=== PATIENT | female | born 1960 | race Caucasian/White ===

== ENCOUNTER 2018-12-15 19:02 | Inpatient (IN) | payer MEDICAID, SELFPAY ==
[~2018-12-15] VITALS: Ht 167.6 cm; Wt 76.4 kg
[2018-12-15] MEDS ORDERED: LORazepam 2 MG/ML VIAL (J2060) IV STA (19:27)
[2018-12-15] MEDS ORDERED: LORazepam 2 MG/ML VIAL (J2060) As Ordered ONE (19:27)
[2018-12-15 19:48] LABS: BASO % 0.2 % (0.0-1.0); HEMATOCRIT 42.8 % (36.0-47.0); HEMOGLOBIN 14.1 g/dl (12.0-15.5); LYMPH # 0.7 10^3/uL (1.5-4.5); LYMPH % 3.5 % (24.0-44.0); MEAN CORPUSCULAR HEMOGLOBIN 28.7 pg (27.0-33.0); MEAN CORPUSCULAR HGB CONC 32.9 g/dl (32.0-36.5); MEAN CORPUSCULAR VOLUME 87.2 fl (80.0-96.0); MONO # 1.5 10^3/uL (0.0-0.8); MONO % 7.7 % (0.0-5.0); NEUTROPHILS # 17.6 10^3/uL (1.8-7.7); NEUTROPHILS % 87.9 % (36.0-66.0); RED BLOOD COUNT 4.91 10^6/uL (4.00-5.40); WHITE BLOOD COUNT 20.1 10^3/uL (4.0-10.0)
--- NOTE | 2018-12-15 19:57 | REP ---
Clinical: Altered mental status . Comparison: None . Findings: The ventricles, sulci, and cisterns are normal in position and appearance. Smith-white differentiation is maintained. No acute intracranial hemorrhage, mass/mass effect, pathology or trauma/injury. No evidence for acute infarction. No extra-axial fluid collection. Calvarium is intact. Paranasal sinuses and mastoid air cells are clear. Impression: Normal noncontrast head CT. No evidence for acute intracranial pathology or trauma/injury. Electronically Signed by Marino Saucedo MD 12/15/2018 07:50 P
[2018-12-15 19:59] LABS: INR 1.35; PROTHROMBIN TIME 16.9 SECONDS (12.1-14.4)
[2018-12-15 20:00] LABS: PARTIAL THROMBOPLASTIN TIME 27.4 SECONDS (25.4-37.6)
[2018-12-15] MEDS ORDERED: DILUENT IV ONE (20:00)
[2018-12-15] MEDS ORDERED: NS IV ONE (20:00)
[2018-12-15 20:13] LABS: AMPHETAMINES LEVEL URINE NEGATIVE (NEGATIVE); BARBITURATES URINE NEGATIVE (NEGATIVE); BENZODIAZEPINES URINE NEGATIVE (NEGATIVE); CANNABINOIDS URINE NEGATIVE (NEGATIVE); COCAINE METABOLITE URINE NEGATIVE (NEGATIVE); METHADONE URINE NEGATIVE (NEGATIVE); OPIATES URINE NEGATIVE (NEGATIVE); PHENCYCLIDINE URINE NEGATIVE (NEGATIVE)
[2018-12-15] MEDS: SUCCINYLCHOLINE INJ 200 MG/10 ML VIAL (J0330) IV ONE ×2 (20:15→20:48)
[2018-12-15] MEDS ORDERED: ETOMIDATE INJ 20MG/10ML VIAL IV ONE (20:15)
[2018-12-15] MEDS ORDERED: PROPOFOL 1,000 MG in APPROPRIATE DILUENT 1 EA IV SCH (20:15)
[2018-12-15 20:20] LABS: ABG BASE EXCESS -5.5 (-2.0-2.0); ABG HCO3 18.1 MEQ/L (22.0-26.0); ABG O2 SATURATION 96.6 % (95.0-99.0); ABG PARTIAL PRESSURE CO2 30.3 mmHg (35.0-45.0); ABG PARTIAL PRESSURE O2 85.7 mmHg (75.0-100.0); ABG pH (ARTERIAL) 7.394 UNITS (7.350-7.450)
[2018-12-15 20:20] LABS: ACETAMINOPHEN LEVEL < 2.0 UG/ML (10.0-30.0); ALBUMIN 3.7 GM/DL (3.2-5.2); ALT/SGPT 27 U/L (12-78); BILIRUBIN,DIRECT 0.8 MG/DL (0.0-0.2); BILIRUBIN,TOTAL 1.8 MG/DL (0.2-1.0); C REACTIVE PROTEIN QUANTITATIV 2.91 MG/DL (0.00-0.30); CK-MB VALUE MASS < 1.0 NG/ML (<3.6); CPK CREATINE PHOSPHOKINASE 70 U/L (26-192); ETHYL ALCOHOL (ETHANOL) < 0.003 % (0.000-0.010); MB/CK RELATIVE INDEX 1.43 (< OR =4); SALICYLATE LEVEL 2.7 MG/DL (5.0-30.0); TOTAL PROTEIN 9.2 GM/DL (6.4-8.2); TROPONIN I < 0.02 NG/ML (< 0.10)
[2018-12-15 20:25] LABS: PLATELET COUNT, AUTOMATED 99 10^3/uL (150-450)
--- NOTE | 2018-12-15 20:44 | REP ---
Clinical: Altered mental status . Comparison: None . Findings: The mediastinum and cardiac silhouette are stable and within normal limits for portable technique. The lung bragg demonstrate chronic-appearing changes without acute consolidation, effusion, or pneumothorax. Skeletal structures are intact. Impression: No obvious acute cardiopulmonary process appreciated. Electronically Signed by Marino Saucedo MD 12/15/2018 08:36 P
[2018-12-15] MEDS ORDERED: ROCURONIUM BROMIDE 50 MG/5 ML VIAL IV ONE (21:00)
[2018-12-15 21:15] LABS: BLOOD UREA NITROGEN 11 MG/DL (7-18); CALCIUM LEVEL 9.3 MG/DL (8.5-10.1); CARBON DIOXIDE LEVEL 20 MEQ/L (21-32); CHLORIDE LEVEL 102 MEQ/L (98-107); CREATININE FOR GFR 1.01 MG/DL (0.55-1.30); GLOMERULAR FILTRATION RATE > 60.0 (>51); GLUCOSE, FASTING 312 MG/DL (70-100); POTASSIUM SERUM 3.5 MEQ/L (3.5-5.1); SODIUM LEVEL 136 MEQ/L (136-145)
--- NOTE | 2018-12-15 21:17 | REP ---
Clinical: Status post intubation . Comparison: 12/15/2018 . Findings: Endotracheal tube 2.7 cm above the maki. The mediastinum and cardiac silhouette are stable and within normal limits for portable technique. The lung bragg are clear without acute consolidation, effusion, or pneumothorax. Skeletal structures are intact. Impression: Endotracheal tube in satisfactory position. No focal consolidation. Electronically Signed by Marino Saucedo MD 12/15/2018 09:08 P
[2018-12-15] MEDS ORDERED: AMPICILLIN SOD/SULBACTAM SOD 3 GM in D5W MINI-BAG PLUS 100 ML IV ONE (21:30)
[2018-12-15] MEDS ORDERED: VANCOMYCIN HCL 1,000 MG, VIAL MATE ADAPTER 1 EACH in D5W 250 ML IV ONE (21:30)
[2018-12-15] MEDS ORDERED: dexameTHASONE 20 MG/5 ML VIAL (J1100) IV ONE (21:30)
[2018-12-15] MEDS ORDERED: cefTRIAXone SOD 1 GM in D5W MINI-BAG PLUS 50 ML IV ONE (21:30)
[2018-12-15] MEDS ORDERED: LABETALOL HCL 100 MG/20 ML VIAL IV STA (21:40)
[2018-12-15 21:41] LABS: APPEARANCE, CSF TURBID (CLEAR); CSF TUBE# CELL CNT TUBE 1; CSF TUBE# CELL CNT TUBE 4
[2018-12-15 21:51] LABS: CSF TUBE# GLU TUBE 3; CSF TUBE# TP TUBE 3; GLUCOSE CSF 58 MG/DL (40-75)
[2018-12-15] MEDS ORDERED: IBUPOTC PO (22:05)
[2018-12-15] MEDS ORDERED: EXCETAB81 PO (22:05)
[2018-12-15] MEDS ORDERED: ADVI1CAP2 PO (22:05)
[2018-12-15] MEDS ORDERED: D5W/0.9% SODIUM CHLORIDE 1,000 ML IV SCH (22:30)
[2018-12-15] MEDS ORDERED: IPRATROPIUM 0.5MG/ALBUTEROL 2.5MG INH SOL UD 3ML (DUONEB)(J7620) NEB ONE (22:45)
[2018-12-15 22:55] LABS: TOTAL PROTEIN,CSF 451 MG/DL (15-45)
[2018-12-15 23:06] VITALS: BP 144/72
--- NOTE | 2018-12-15 23:14 | PHACANCOPD ---
PHARMACY VANCOMYCIN DOSING Pt Demographics Demographics Patient Age:58 , Weight:73.000 , Gender: female Adjusted Body Weight Date: 12/15/18, Adjusted Body Weight: Kg Events Past 24 Hours Events Past 24 Hours: NO: Dialysis, Diuretic Therapy, Change in CrCl, Fever, Elevation in WBC, Pending Diagnostics, Pending Procedures, Other Vancomycin Vancomycin Target Ranges: 15-20 mcg/ml Vancomycin Load Y/N: Yes Load Dose Date Time Vancomycin Load Dose: 2000mg Date: 12-16 Time: 0000 Vancomycin Dose Date: 12/15/18. Current Vancomycin Dose: [1000mg q8h] Intermittent Dosing?: No Labs Labs Item Value Date Time White Blood Count 20.1 10^3/uL H 12/15/18 1928 Glomerular Filtration Rate > 60.0 12/15/188 Creatinine 1.01 MG/DL 12/15/18 1928 Blood Urea Nitrogen 11 MG/DL 12/15/18 1928 Vital Signs Label Value Date Time Patient Temperature 101.8 degrees F 12/15/18 2245 Temperature Source Rectal 12/15/18 2245 Micro Microbiology 12/15/18 Blood Culture, Received Pending 12/15/18 , Received Pending 12/15/18 Gram Stain, Received Pending 12/15/18 CSF Culture, Received Pending 12/15/18 Respiratory Virus Panel (PCR) (FERMIN) - Final, Complete Creatinine Clearance Date:12/15/18. Creatinine Clearance: [~60]. Pending Labs Trough 12-16 @1500 Assessment and Plan Maintaining Current Dose?: Yes Reason for dose change: No Dose Change Pharmacist Note Pharmacist Note Date: 12/15/18. Pharmacist note:Will monitor and make adjustments as needed. ISHA OLIVERA PHARMACY Dec 15, 2018 23:14
[2018-12-15] MEDS: KCL 20MEQ IN D5/0.45NS 1000ML 1,000 ML IV SCH (23:29)
[2018-12-16] VITALS (24 sets, daily range): BP systolic 137–180; BP diastolic 61–84
[2018-12-16] MEDS: PROPOFOL 1,000 MG in APPROPRIATE DILUENT 1 EA IV SCH ×6 (00:41→22:37)
[2018-12-16] MEDS: VANCOMYCIN HCL 1,000 MG, VIAL MATE ADAPTER 1 EACH in D5W 250 ML IV SCH ×2 (00:42→08:06)
[2018-12-16] MEDS: ACETAMINOPHEN 325 MG/10.15 ML UDC GT PRN ×5 (01:12→20:27)
[2018-12-16] MEDS: IPRATROPIUM 0.5MG/ALBUTEROL 2.5MG INH SOL UD 3ML (DUONEB)(J7620) NEB SCH ×7 (03:05→23:17)
[2018-12-16] MEDS: dexameTHASONE 20 MG/5 ML VIAL (J1100) IV SCH ×4 (03:43→22:07)
[2018-12-16] MEDS ORDERED: AMPICILLIN SOD 500 MG in D5W 50 ML IV SCH (04:00)
[2018-12-16 05:29] LABS: BASO % 0.2 % (0.0-1.0); HEMATOCRIT 38.5 % (36.0-47.0); HEMOGLOBIN 12.7 g/dl (12.0-15.5); LYMPH # 0.3 10^3/uL (1.5-4.5); LYMPH % 1.8 % (24.0-44.0); MEAN CORPUSCULAR HEMOGLOBIN 28.9 pg (27.0-33.0); MEAN CORPUSCULAR VOLUME 87.5 fl (80.0-96.0); MONO % 5.8 % (0.0-5.0); NEUTROPHILS # 16.1 10^3/uL (1.8-7.7); NEUTROPHILS % 90.8 % (36.0-66.0); PLATELET COUNT, AUTOMATED 66 10^3/uL (150-450); WHITE BLOOD COUNT 17.7 10^3/uL (4.0-10.0)
[2018-12-16] MEDS: HEPARIN SOD (PORCINE) 5000 UNITS/ML VIAL SC SCH ×3 (05:33→22:00)
[2018-12-16 05:54] LABS: ALT/SGPT 25 U/L (12-78); BILIRUBIN,TOTAL 1.5 MG/DL (0.2-1.0); BLOOD UREA NITROGEN 10 MG/DL (7-18); CALCIUM LEVEL 7.9 MG/DL (8.5-10.1); CARBON DIOXIDE LEVEL 20 MEQ/L (21-32); CHLORIDE LEVEL 103 MEQ/L (98-107); CHOLESTEROL LEVEL 122 MG/DL (< 200); CPK CREATINE PHOSPHOKINASE 170 U/L (26-192); CREATININE FOR GFR 0.82 MG/DL (0.55-1.30); GLOMERULAR FILTRATION RATE > 60.0 (>51); GLUCOSE, FASTING 414 MG/DL (70-100); LDH LACTATE DEHYDROGENASE 234 U/L (84-246); PHOSPHORUS LEVEL 1.9 MG/DL (2.5-4.9); POTASSIUM SERUM 3.5 MEQ/L (3.5-5.1); SODIUM LEVEL 135 MEQ/L (136-145); TOTAL PROTEIN 8.5 GM/DL (6.4-8.2); TRIGLYCERIDES LEVEL 138 MG/DL (<150)
[2018-12-16 05:58] LABS: ABG BASE EXCESS -3.6 (-2.0-2.0); ABG O2 SATURATION 99.3 % (95.0-99.0); ABG PARTIAL PRESSURE CO2 32.1 mmHg (35.0-45.0); ABG STANDARD HCO3 21.5 MEQ/L (22.0-26.0); ABG pH (ARTERIAL) 7.412 UNITS (7.350-7.450)
[2018-12-16] MEDS ORDERED: GLUCOSE 4 GM CHEW TABLET PO PRN (06:45)
[2018-12-16] MEDS ORDERED: DEXTROSE 50% 50 ML SYRINGE IV PRN (06:45)
[2018-12-16] MEDS ORDERED: GLUCAGON FOR INJ 1 MG VIAL (J1610) SC PRN (06:45)
[2018-12-16] MEDS: KCL 20MEQ IN D5/0.45NS 1000ML 1,000 ML IV SCH ×4 (06:56→20:11)
[2018-12-16] MEDS: HumaLOG INSULIN (NovoLOG) PER UNIT SC SCH ×2 (07:51→12:45)
--- NOTE | 2018-12-16 07:57 | HPE ---
DATE OF ADMISSION: 12/15/2018 START TIME: 2199 STOP TIME: 2241 I was called to the ER to attend Patty Gibson. She is accompanied by family. Reportedly was fine up until yesterday, complained of some headaches and stiff neck. This morning much worse she had a fever and altered mental status. She was combative in the ER to the point where she had to be intubated. She had T-Max 101.7, heart rate in the 140's, blood pressure initially in the 250's, improved with propofol. She had an LP which showed 8,997 white cells mainly polymorphonuclear leukocytes. Glucose at 58, protein is pending. CT scan of the head was unremarkable. Chest x-ray done post-intubation shows the endotracheal tube being in satisfactory position no infiltrates, no pneumos. The family reports that no one else at home is sick. No recent travel. She does smoke. She only has one cat which apparently is healthy. Her allergies listed as none. CURRENT MEDICATIONS: Only Advil P.M.. PAST MEDICAL HISTORY: Significant for a previous history of alcohol use but dry for 2 years. Continued ongoing tobacco abuse. SOCIAL HISTORY: Lives at home and has 8 children and an indoor cut. Tobacco at least a pack a day. FAMILY HISTORY: Noncontributory. REVIEW OF SYSTEMS: As per the HPI. Constitution: Significant for fevers. HEENT: Significant for headaches. Pulmonary as per the HPI with smoking. Cardiac: Unremarkable for angina. GI: Unremarkable for any recent nausea, vomiting, or diarrhea. : Unremarkable for dysuria or urgency. Neurologic: Significant for her mental status changes. Endocrine: Unremarkable for diabetes or thyroid disease. Hematologic: Unremarkable for bleeding dyscrasia. Dermatologic: Unremarkable Musculoskeletal: Significant for diffuse muscles aches and pains. Psychiatric: Unremarkable. PHYSICAL EXAM: Currently this is an intubated female here in the ER. She is on a propofol drip. Blood pressure 143/65, heart rate 112/118 with a sinus mechanism. Respiratory rate 16-18 and she does over breathe the vent. She currently has a fever of 101. HEENT: Shows the oral endotracheal tube. Pupils are about 5 mm and do react although they are sluggish. She does have corneals and a gag. Membranes are moist. Trachea is midline. CHEST: Clear to auscultation. Expansion is symmetric. No focal adventitious breath sounds are identified. Cardiac exam regular with no gallop. Peripheral pulses are easily palpable. There is no edema. Abdomen obese, soft and active bowel sounds. No convincing organomegaly or masses. Extremities: No cyanosis or clubbing. Neurologically, she is sedate. Psychiatric exam shows her to be sedated. Other laboratory show a white blood cell count of 20.1, hemoglobin 14.1, platelet count 99,000, 87.9% segmented neutrophils no bands, sodium 136, potassium 3.5, chloride 102, CO2 20, BUN 11, creatinine 1.01, glucose 312, first lactic acid 7.6, bilirubin 1.8, alkaline phos 189, ammonia mildly elevated at 42. Blood gas done after intubation shows pH 7.394, Pco2 30.3, Po2 85, on unknown vent setting. Coags unremarkable. Tox screen unremarkable. Urine is negative. IMPRESSION: 1. Bacterial meningitis. 2. History of tobacco abuse. RECOMMENDATIONS: At this point she will be treated with triple antibiotics and normal ampicillin, Rocephin and vancomycin as well as Decadron 10 mg IV every 6 [address] I spoke with Dr. Garrido from infectious disease as she was in agreement with this regimen and I have asked her to see her in the morning. She will receive IV hydration. She is making reasonable urine. Hemodynamically at this point is acceptable. We will give her sedation as needed and pain medications for her headache. I spoke with the family at length regarding her critical illness. Prognosis at this point is guarded at best. I left the bedside at 2242 hours, 42 minutes of critical care time at the bedside not including procedures.
[2018-12-16] MEDS ORDERED: cefTRIAXone SOD 2 GM in D5W MINI-BAG PLUS 50 ML IV SCH (09:00)
--- NOTE | 2018-12-16 09:04 | REP ---
Portable chest x-ray: Single view. History: Respiratory failure. Comparison chest x-ray: December 15, 2018. Findings: A nasogastric tube has been inserted and terminates in the left upper quadrant of the abdomen. Endotracheal tube remains in good position at the level of the transverse aorta. There is discoid atelectasis in the left base laterally and posteriorly behind the heart. The right lung is clear. Heart is not enlarged. Electronically Signed by Marcus Leigh MD 12/16/2018 08:56 A
[2018-12-16] MEDS: CHLORHEXIDINE GLUCONATE 0.12 % 15ML UDC (PERIDEX ORAL RINSE) MT SCH ×2 (09:17→20:27)
[2018-12-16] MEDS: PANTOPRAZOLE 40MG INJ (PROTONIX) (C9113) IV SCH (09:17)
[2018-12-16] MEDS: cefTRIAXone SOD 2 GM in D5W MINI-BAG PLUS 50 ML IV SCH ×2 (09:17→22:07)
--- NOTE | 2018-12-16 09:38 | CCN ---
DATE OF VISIT: 12/16/2018 START TIME: 0812 hours STOP TIME: 0845 hours I again attended Patty Gibson. Patient has been examined and the chart reviewed. I spoken at length with one of her daughters at the bedside. The cerebrospinal fluid (CSF) multiplex has shown Strep pneumoniae. Maximum temperature (Tmax) overnight 102.4, heart rate generally in the 90s to low 100s with a sinus mechanism. Blood pressure 138-150s systolic. She is making reasonable urine. Intake and output 1320 in and 1325 out. Arterial blood gas done on PRVC of 16, tidal volume 450, PEEP of 5, FiO2 40% has a pH 7.412, pCO2 of 32, pO2 of 154.0, saturation 99.3%. Sodium 135, potassium 3.5, chloride 103, CO2 20, BUN 10, creatinine 0.82, glucose 414. Lactic acid down to 2.8 last evening. Phosphorus mildly low at 1.9. Bilirubin improved from 1.8 to 1.5 this morning. Alkaline phosphatase improved as well at 141. White blood cell count 17.7, hemoglobin 12.7, and platelet count down to 66,000. 90.8% segmented neutrophils, no bands. Chest x-ray done this morning shows endotracheal tube and orogastric tubes in good position. There is some plate-like atelectasis at the left base. I cannot rule out a minimal infiltrate on the right. On exam, she is sedate, moves all extremities. Pupils are about 4-5 mm and react. Sclerae are clear. Trachea is the midline. Chest is essentially clear to auscultation and percussion. Expansion is symmetric. No focal adventitious breath sounds are identified. Tactile fremitus palpable throughout. Cardiac exam is regular with no murmur or gallop. Peripheral pulses palpable. No edema. Abdomen obese, soft with active bowel sounds. No convincing organomegaly or masses. Extremities show no cyanosis or clubbing. Neurologically, she is heavily sedated. She does have upgoing toes today, however. The most pressing problems requiring my presence at the bedside: 1. Strep pneumoniae/pneumococcal meningitis. 2. Respiratory failure secondary to the above. 3. Ongoing tobacco use. At this point, we will continue her current antimicrobials and Decadron until seen by infectious diseases. Given the fact it is pneumococcus and not meningococcus, we can likely discontinue her isolation. She is on ulcerative and deep venous thrombosis (DVT) prophylaxis, but we will need to monitor her platelet count as it is down from yesterday. We will begin enteral feeds. Hopefully in the next 24 hours we can begin weaning from the ventilator as well. Her prognosis in view of the severity of her presentation remains guarded however, and I did communicate that with her daughter at the bedside. I left the bedside at 0845 hours. 33 minutes of critical care time at the bedside not including procedures.
--- NOTE | 2018-12-16 10:23 | ECGEPIP ---
Stationary ECG Study [facility] - ED Test Date: 2018-12-15 Pat Name: DANICA CESAR Department: Room: [place] [address] Gender: F [employer] [address] Justice: [place] : 1960 Requested By: JOAQUIN Berg Order Number: [id number] Reading MD: Leyla Casper Measurements Intervals [place] Rate: 126 P: 85 KS: 147 QRS: 76 QRSD: 104 T: 68 QT: 351 QTc: 510 Interpretive Statements SINUS TACHYCARDIA NONSPECIFIC ST & T-WAVE ABNORMALITY ABNORMAL RHYTHM ECG NO PRIOR FOR COMPARISON Electronically Signed On 12-16-2018 10:22:51 EDT by Leyla Casper
[2018-12-16] MEDS: INSULIN HUMAN REGULAR 100 UNITS in NS 99 ML IV SCH ×2 (14:07→22:36)
[2018-12-16] MEDS: INSULIN IV RATE CHANGE DOCUMENTATION ML/HR XX SCH ×6 (15:12→22:59)
[2018-12-16] MEDS ORDERED: diphenhydrAMINE 25 MG CAP PO ONE (15:45)
[2018-12-16] MEDS ORDERED: VANCOMYCIN HCL 1,000 MG, VIAL MATE ADAPTER 1 EACH in D5W 250 ML IV SCH (16:00)
[2018-12-16] MEDS ORDERED: IBUPROFEN 100 MG/5 ML SUSP UDC DYE FREE PO PRN (16:30)
[2018-12-16] MEDS ORDERED: VANCOMYCIN HCL 500 MG in D5W MINI-BAG PLUS 100 ML IV ONE (17:00)
[2018-12-16] MEDS: VANCOMYCIN HCL 1,000 MG, VIAL MATE ADAPTER 1 EACH in NS 250 ML IV SCH (20:26)
[2018-12-17] VITALS (25 sets, daily range): BP systolic 120–190; BP diastolic 58–88
[2018-12-17] MEDS: ACETAMINOPHEN 325 MG/10.15 ML UDC GT PRN ×4 (00:23→20:38)
[2018-12-17] MEDS: MORPHINE 4 MG/ML 1ML VIAL/SYRINGE (J2270) IV PRN ×2 (00:24→15:18)
[2018-12-17] MEDS: INSULIN IV RATE CHANGE DOCUMENTATION ML/HR XX SCH ×13 (00:27→22:16)
[2018-12-17] MEDS: KCL 20MEQ IN D5/0.45NS 1000ML 1,000 ML IV SCH (02:16)
[2018-12-17] MEDS: PROPOFOL 1,000 MG in APPROPRIATE DILUENT 1 EA IV SCH ×3 (02:17→15:59)
[2018-12-17] MEDS: IPRATROPIUM 0.5MG/ALBUTEROL 2.5MG INH SOL UD 3ML (DUONEB)(J7620) NEB SCH ×6 (03:17→23:28)
[2018-12-17] MEDS: dexameTHASONE 20 MG/5 ML VIAL (J1100) IV SCH ×4 (03:48→22:13)
[2018-12-17] MEDS: VANCOMYCIN HCL 1,000 MG, VIAL MATE ADAPTER 1 EACH in NS 250 ML IV SCH ×3 (03:48→20:19)
[2018-12-17] MEDS: INSULIN HUMAN REGULAR 100 UNITS in NS 99 ML IV SCH ×3 (04:12→17:23)
[2018-12-17 05:00] LABS: BASO % 0.2 % (0.0-1.0); HEMATOCRIT 37.8 % (36.0-47.0); HEMOGLOBIN 12.4 g/dl (12.0-15.5); LYMPH # 0.3 10^3/uL (1.5-4.5); LYMPH % 2.2 % (24.0-44.0); MEAN CORPUSCULAR HEMOGLOBIN 28.8 pg (27.0-33.0); MEAN CORPUSCULAR HGB CONC 32.8 g/dl (32.0-36.5); MEAN CORPUSCULAR VOLUME 87.7 fl (80.0-96.0); MONO % 8.4 % (0.0-5.0); NEUTROPHILS # 10.9 10^3/uL (1.8-7.7); NEUTROPHILS % 87.9 % (36.0-66.0); RED BLOOD COUNT 4.31 10^6/uL (4.00-5.40); WHITE BLOOD COUNT 12.4 10^3/uL (4.0-10.0)
[2018-12-17 05:08] LABS: PLATELET COUNT, AUTOMATED 70 10^3/uL (150-450)
[2018-12-17 05:15] LABS: HEMOGLOBIN A1c 11.7 %
[2018-12-17] MEDS: HEPARIN SOD (PORCINE) 5000 UNITS/ML VIAL SC SCH (06:00)
[2018-12-17 07:37] LABS: ALBUMIN 2.7 GM/DL (3.2-5.2); ALT/SGPT 23 U/L (12-78); BILIRUBIN,TOTAL 1.1 MG/DL (0.2-1.0); BLOOD UREA NITROGEN 14 MG/DL (7-18); CALCIUM LEVEL 7.8 MG/DL (8.5-10.1); CARBON DIOXIDE LEVEL 23 MEQ/L (21-32); CHLORIDE LEVEL 103 MEQ/L (98-107); CHOLESTEROL LEVEL 108 MG/DL (< 200); CPK CREATINE PHOSPHOKINASE 141 U/L (26-192); CREATININE FOR GFR 0.76 MG/DL (0.55-1.30); GLOMERULAR FILTRATION RATE > 60.0 (>51); GLUCOSE, FASTING 250 MG/DL (70-100); IMMUNOGLOBULIN G 1880 MG/DL (681-1648); LDH LACTATE DEHYDROGENASE 273 U/L (84-246); POTASSIUM SERUM 3.6 MEQ/L (3.5-5.1); SODIUM LEVEL 134 MEQ/L (136-145); TOTAL PROTEIN 7.7 GM/DL (6.4-8.2); TRIGLYCERIDES LEVEL 116 MG/DL (<150)
[2018-12-17 07:39] LABS: PHOSPHORUS LEVEL 1.1 MG/DL (2.5-4.9)
--- NOTE | 2018-12-17 07:50 | CR ---
DATE OF CONSULTATION: 12/16/2018 REASON FOR CONSULTATION: Bacterial meningitis. HISTORY OF PRESENT ILLNESS: This is a 58-year-old female with no pertinent past medical history who was admitted on 12/15/2018 evening for altered mental status. She was brought in by her family members who state that until the day of admission, the patient has been relatively well. In the morning of 12/15/2018, she was complaining of some headache and stiff neck. The daughter, who is at bedside today states that the mom usually does not complain of anything and does avoid going to the doctor's office. It has been many years since the patient has been evaluated by a medical provider. They state that they brought her in because the patient was having altered mental status and was having high fevers. When she was in the emergency room, she was combative to a point where she needed to be intubated. She had a maximum temperature (T-max) of 101.7 and a heart rate at 140 with a blood pressure systolic in the 200s. Once she was sedated with propofol, her blood pressure did improve. A lumbar puncture in the emergency room did show that she had a WBC of 8997, which were mainly polymorphic nuclei. Glucose of 58 and protein of 451. Drug toxicology was negative. Chest x-ray after intubation showed no infiltrate and that the tube was placed in satisfactory position with no pneumothorax. Daughter states that no one else at home was sick. She had no recent travel. No recent head trauma. PAST MEDICAL HISTORY: Past history of alcohol use but sober for 2 years. Current tobacco abuse. PAST SURGICAL HISTORY: One section. CURRENT MEDICATIONS: Advil PM as needed. SOCIAL HISTORY: Lives at home with a cat by herself but does have eight children. Does smoke at least 1/2 of tobacco a day. Used to have alcohol use in the past but has been sober for 2 years. No history of IV drug abuse. She has one tattoo on her left lateral shoulder, which she has had for many years. FAMILY HISTORY: Noncontributory. REVIEW OF SYSTEMS: Unable to obtain for the patient is currently intubated but it is positive, according to the daughter for headaches and fevers only. PHYSICAL EXAMINATION: VITALS: Temperature 102.6, pulse 100, respiration 28, blood pressure 160/77, map 144, pulse ox of 97% on ventilator of 40 FiO2. HEENT: Oral endotracheal tube in place. She has a cough reflex. Membrane is moist. Trachea is midline. Nares: On the left lateral nasal bridge, there is an old indentation from a previous surgical removal. Site appears deep but well healed with no opening. No erythema. No discharge noted. It is measuring about 3 x 4 cm, irregular in size. No eschar or scabbing noted. LUNGS: Adventitious lung sound, possible upper respiratory because the patient has a wet cough. Lower lobes due sound clear to auscultate and lungs appear to expand symmetrically. CARDIAC: Slightly tachycardic but regular rate and rhythm. No audible murmurs noted. ABDOMEN: Soft, nontender, positive bowel sounds in all four quadrants. No splenomegaly or hepatomegaly noted. No surgical scar noted as well. EXTREMITIES: No lower extremity edema. No open wounds noted. No swelling. INTEGUMENTARY: Small pinkish hives appreciated around the periumbilical, largest measuring about 2 x 3 cm round and the second one measuring on the right lateral quadrant measuring about 1 x 2 cm round. No other lesions are noted anywhere. Slightly raised pink papule with no vesicles noted. LABORATORY: Hematology: WBC 15.7, hemoglobin 12.7, hematocrit 38.5, platelets 66. Chemistries: Sodium 135, potassium 3.5, chloride 103, carbon dioxide 20, anion gap 12, BUN 10, creatinine 0.82, GFR 60.0, fasting glucose 414, calcium 7.9, phosphorus 1.9, total bilirubin 1.5, AST 35, ALT 25, alkaline phosphatase 141, lactate dehydrogenase 234, ammonia 42, total creatinine 170. Blood gas: ABG 7.412, pCO2 32.1, pO2 154.0. Toxicology urine drug screen negative for drugs. Lumbar puncture: WBC highest 897, glucose 54, polynucleated WBC 78.9, mononuclear percentage 21.1, total protein 451. Microbiology: CSF fluids final positive for Streptococcal pneumoniae. Blood cultures times 1 pending. Respiratory syncytial virus (RSV) penal negative. IMAGING: Head CT: Normal noncontrast head CT. No evidence of acute intracranial pathology or trauma. Chest x-ray: No obvious acute cardiopulmonary process appreciated. Endotracheal (ET) tube placed appropriately. ASSESSMENT/PLAN: This is a 58-year-old female with no pertinent past medical history except tobacco abuse who presented into the emergency department on 12/15/2018 for altered mental status and fevers. Her cerebrospinal fluid (CSF) cultures were positive for Streptococcal pneumoniae. She has been started on antibiotic treatment and is currently intubated. She will be managed for the following problems. 1. Bacterial meningitis: CSF fluids are consistent with a bacterial meningitis with cultures positive for Streptococcal pneumoniae. According to the daughter, the patient does not have any medical care and tries to avoid going to the doctor, so it is highly unlikely that she has gotten her pneumonia vaccine or flu vaccine. The daughter denies patient having any recent trauma. Recommend treatment for Strep pneumoniae is ceftriaxone 2 grams IV every 12 hours and vancomycin 1000 mg IV every 8 hours. Once culture sensitivities have returned, we can de-escalate antibiotics. Recommendation duration of treatment for 14 days. Unsure if the patient has underlying immunocompromised state, so we will get immunoglobulin G, A and M levels. She was born between 1944 and 1963, she we will get a hepatitis C screen as well as HIV. Possibly, I do believe because of her avoidance of going to a primary care, her immunocompromise state can be from noncompliant diabetes. We will get an A1c. She is currently on an insulin drip. She is currently on dexamethasone 10 mg every 6 for at least 2-5 days to help with cerebral inflammation secondary to the meningitis.We will continue with intensive care unit's (ICU) recommendations for sugar management. 2. Abdominal hives: On the abdomen, there does appear to be erythematous lesion, appears like hives. Will give her a one-time dose of Benadryl 25 mg by mouth and will continue to monitor. It could be secondary to her fevers that she is having. She does have a maximum temperature (T-max) of 103.1. I do not know if it is secondary to a drug reaction. Will continue to follow. 3. Fevers: possibly secondary to the meningitis. Her renal function is appropriate at 10 and 0.82. We will have Ibuprofen 600 mg by mouth every 6 hours as needed for fevers. Thank you for this consultation. We will continue to follow the patient while she is admitted. My faculty preceptor for this patient encounter was physically present during the encounter and was fully available. All aspects of the patient interview, examination, medical decision making process, and medical care plan development were reviewed and approved by the faculty preceptor. The faculty preceptor is aware and concurs with the plan as stated in the body of this note and will attest to such by his/her co-signature. SUSSY
--- NOTE | 2018-12-17 08:12 | REP ---
Portable chest x-ray: Single view. History: Respiratory failure. Comparison study: December 16, 2018. Findings: EKG electrodes are seen. An NG tube enters left upper quadrant. Endotracheal tube is seen in good position at the level of the aortic knob. There are increased markings in the left base laterally and behind the heart unchanged. No new infiltrate is seen. Heart size is normal. Electronically Signed by Marcus Leigh MD 12/17/2018 08:03 A
--- NOTE | 2018-12-17 09:34 | CCN ---
DATE OF SERVICE: 12/17/2018 Critical care time was 1 hour. This excludes all procedures. Ms. Gibson is a 58-year-old female, who has been diagnosed with streptococcal meningitis with sepsis and no evidence of septic shock currently. Antibiotic regimen was adjusted yesterday. She remains on Decadron with a goal of 3-5 days. Had occasional vagaling overnight with movement. Diprivan has been decreased. Patient was placed on insulin drip yesterday with better glucose control. Urine output has been good. Therefore, I have discontinued her intravenous (IV) fluids that had D5 and will continue to monitor fingersticks with a goal blood sugar less than 180. This morning she continues to spike fevers. Maximum temperature (Tmax) is 102.6. I believe this is due to the severity of the streptococcal meningitis. A sedation vacation is scheduled for this morning. She was responding to pain yesterday. This morning is slightly more sedated and therefore will reevaluate neurologic status on sedation vacation. PHYSICAL EXAMINATION: Temperature is 102.6, pulse is 86, respiratory rate is 16, blood pressure is 159/74, oxygen saturation 97% on 0.40. Patient on arrival to the room is actually overbreathing the ventilator with a respiratory rate of 22. Current ventilatory settings PRVC of tidal volume of 450, respiratory rate of 16, PEEP of 4, with a pAO2 of 0.40. On the ventilatory setting, arterial blood gas shows a pH of 7.41, pCO2 of 32, pAO2 of 154. GENERAL: Patient is sedated on mechanical ventilation. Currently no purposeful movements but did previously according to the nursing staff. She is overbreathing the vent. HEENT: Sclerae are clear and anicteric. Pupils are approximately 4 mm and reactive to light. They are symmetric. Mucous membranes are moist. Tongue is midline without lesions. Tongue appears moist. Endotracheal tube, orogastric (OG) tube is in place. Neck is supple. No tracheal deviation or mass. LYMPH: No cervical, supraclavicular or axillary adenopathy. CARDIAC: Regular, S1, S2. Without audible murmur, rub or gallop. No elevated jugular venous pulse (JVP). No peripheral edema. Thromboembolism deterrents (TEDs) and Tomasz's are in place. PULMONARY: Clear to auscultation without rales, rhonchi or wheezes. No dullness to percussion. No accessory muscle use. ABDOMEN: Slightly potty, but normal to hyperactive bowel sounds. No discernible hepatosplenomegaly. No masses or hernia. The abdomen is compressible. EXTREMITIES: No cyanosis, clubbing or edema. SKIN: A few confluent, mildly erythematous rashes over the abdomen and legs that come and go. There is no evidence of an open wound. There is no jaundice and no bruising. NEUROLOGIC EVALUATION: Limited due to sedation. Will have to re-approach the patient on sedation vacation and repeat neurologic exam. However, the patient is overbreathing the vent and has reactive pupils, but currently is not following commands or responding to painful stimuli. LABORATORY EVALUATION: Sodium is 134, potassium 3.6, chloride is 103, bicarbonate of 23, BUN of 14, creatinine 0.76 , with a glucose of 250. That was this morning's a.m. labs. Most recent bedside check, glucose is down to 184 on an insulin drip. Phosphorus is low at 1.1. Albumin is 2.7. White blood cell count is down to 12.4, hemoglobin 12.4, hematocrit 37.8, and a platelet count of 70. CSF shows a streptococcal pneumonia with sensitivities pending. Chest x-ray shows endotracheal in good position. No significant infiltrate. No fluid. There is some minimal blunting of the left costophrenic angle. IMPRESSION: 1. Streptococcal meningitis with sepsis without evidence of shock. Currently on ceftriaxone, vancomycin, and Decadron. No evidence of seizure activity. Awaiting sedation vacation for further neurologic evaluation. Patient continues to spike fevers, which is fairly normal for this degree of meningitis. Will continue to monitor for signs of shock. 2. Hyperglycemia. On insulin drip, D5W fluids stopped today. Goal blood sugar is 180 or less. 3. Hypophosphatemia. Replaced per tube. 4. Hyponatremia, mild, likely secondary to hyperglycemia. 5. Respiratory failure. Continue on mechanical ventilation. Sedation vacation today. Will continually assess for the appropriateness for extubation. At this point in time, no evidence of acute respiratory distress syndrome (ARDS). Patient is requiring low FiO2. 6. Thrombocytopenia, mild in nature. No indication to stop heparin for deep venous thrombosis (DVT) prophylaxis at this point in time, however, will switch to Lovenox once a day as she has no renal dysfunction. 7. Gastrointestinal (GI) prophylaxis. On Protonix. 8. Deep venous thrombosis prophylaxis. switch to lovenox. 9. There has been a report of some minimal coffee grounds with withdrawal of tube feeds. Therefore, will stop ibuprofen especially in the face of Decadron. MTDD
[2018-12-17] MEDS: CHLORHEXIDINE GLUCONATE 0.12 % 15ML UDC (PERIDEX ORAL RINSE) MT SCH ×2 (10:01→20:19)
[2018-12-17] MEDS: NEUTRA-PHOS 1.5 GM PACKET PO SCH (10:02)
[2018-12-17] MEDS: cefTRIAXone SOD 2 GM in D5W MINI-BAG PLUS 50 ML IV SCH ×2 (10:02→22:13)
[2018-12-17] MEDS: ENOXAPARIN 40 MG/0.4 ML SYRINGE (J1650) SC SCH (10:03)
[2018-12-17] MEDS: PANTOPRAZOLE 40MG INJ (PROTONIX) (C9113) IV SCH (10:03)
[2018-12-17 10:46] LABS: HEPATITIS C VIRUS ABY INDEX 0.2 INDEX (<0.8)
[2018-12-17 10:47] LABS: HIV 1&2 SCREEN CENTAUR NEGATIVE (NEGATIVE)
[2018-12-17] MEDS: MIDAZOLAM INJ 2 MG/2 ML VIAL (J2250) IV PRN ×2 (15:18→15:44)
--- NOTE | 2018-12-17 22:59 | IPN ---
DATE: 12/17/2018 SUBJECTIVE: The patient was seen and examined this morning at bedside with two of her children there. Overnight, the patient continued to have fevers. She had some coffee ground suction reported by nursing so her ibuprofen was switched to Tylenol. At the time of exam they had stopped sedation for they wanted to do sedation vacation to see her neurologic status. No other events were reported. OBJECTIVE: Laboratory findings: WBC 12.4, hemoglobin 12.4, hematocrit 37.8, platelets 70. Chemistry: Sodium 134, potassium 3.6, chloride 103, carbon dioxide 23, BUN 14, creatinine 0.76. Fasting glucose 250. A1c 11.7. Lactate dehydrogenase 273. IgG 1880. IgA 1120. IgM 103. Serology: Hepatitis C antibodies negative. HIV antibodies negative. Microbiology: Cerebrospinal fluid positive for Streptococcal pneumoniae. Another cerebrospinal fluid gram stain and CSF culture is final, negative. Sputum cultures currently pending. Chest x-ray from 12/17/2018. No new infiltrates are seen. ET tube is in good position. PHYSICAL EXAMINATION: VITAL SIGNS: Temperature 102.0, pulse 92, respirations 26, blood pressure 143/65 (91). Pulse oximetry 97% on FiO2 of 35, currently ventilated. GENERAL: This is a 58-year-old female who is currently sedated on mechanical ventilation who is unable to provide any purposeful movement, does not follow commands. HEENT: Atraumatic, normocephalic. Pupils are equal, round and reactive. ET tube in place. OG tube in place. LYMPHS: No cervical or supraclavicular adenopathy noted. LUNGS: Clear to auscultate bilaterally. No adventitious lung sounds heard. No accessory muscle use. CARDIAC: Normal S1, S2 sounds with no audible murmurs appreciated. LOWER EXTREMITIES: No lower extremity edema noted. SKIN: No erythematous rash noted on the abdomen which was present yesterday. No open wounds noted. No jaundice. NEUROLOGICAL: Currently sedated. Does not respond to painful stimuli or follow commands. IMPRESSION: This is a 58-year-old female with no pertinent past medical history except tobacco abuse who presented to the ER on 12/15/2018 for altered mental status and fever. Her cerebrospinal fluid cultures was positive for Streptococcal pneumoniae. Since being admitted, she has been intubated and has started antibiotic therapy. She will be managed by infectious disease for the following problems: 1. Bacterial meningitis. CHF fluid times one was positive for Streptococcal pneumoniae. Will continue with ceftriaxone 2 grams IV every 12 hours and vancomycin 1000 mg IV every 8 hours. Pending cultures, sensitivities we will deescalate appropriately. Will also continue with dexamethasone 10 mg every 6 hours for at least 2 to 4 days. Source of cerebral inflammation secondary to meningitis. 2. Abdominal hives/rash. Improved. Will continue to monitor. 3. Fevers. Because coffee ground sputum is noted when suctioning, they have stopped ibuprofen 600 mg. Will continue with Tylenol as prescribed. My faculty preceptor for this patient encounter was physically present during the encounter and was fully available. All aspects of the patient interview, examination, medical decision making process, and medical care plan development were reviewed and approved by the faculty preceptor. The faculty preceptor is aware and concurs with the plan as stated in the body of this note and will attest to such by his/her co-signature.
[2018-12-18] VITALS (23 sets, daily range): BP systolic 111–145; BP diastolic 56–67
[2018-12-18] MEDS: INSULIN IV RATE CHANGE DOCUMENTATION ML/HR XX SCH ×10 (00:32→20:47)
[2018-12-18] MEDS: PROPOFOL 1,000 MG in APPROPRIATE DILUENT 1 EA IV SCH (02:21)
[2018-12-18] MEDS: INSULIN HUMAN REGULAR 100 UNITS in NS 99 ML IV SCH ×3 (02:21→23:10)
[2018-12-18] MEDS: IPRATROPIUM 0.5MG/ALBUTEROL 2.5MG INH SOL UD 3ML (DUONEB)(J7620) NEB SCH ×5 (03:20→19:49)
[2018-12-18] MEDS: VANCOMYCIN HCL 1,000 MG, VIAL MATE ADAPTER 1 EACH in NS 250 ML IV SCH ×3 (04:09→19:38)
[2018-12-18] MEDS: dexameTHASONE 20 MG/5 ML VIAL (J1100) IV SCH ×4 (04:09→22:18)
[2018-12-18] MEDS: MORPHINE 4 MG/ML 1ML VIAL/SYRINGE (J2270) IV PRN (04:09)
[2018-12-18 04:59] LABS: HEMATOCRIT 33.3 % (36.0-47.0); LYMPH # 0.3 10^3/uL (1.5-4.5); LYMPH % 3.7 % (24.0-44.0); MEAN CORPUSCULAR HEMOGLOBIN 28.5 pg (27.0-33.0); MEAN CORPUSCULAR VOLUME 86.3 fl (80.0-96.0); MONO # 0.7 10^3/uL (0.0-0.8); MONO % 7.2 % (0.0-5.0); NEUTROPHILS % 88.2 % (36.0-66.0); RED BLOOD COUNT 3.86 10^6/uL (4.00-5.40); WHITE BLOOD COUNT 9.1 10^3/uL (4.0-10.0)
[2018-12-18 05:01] LABS: PLATELET COUNT, AUTOMATED 67 10^3/uL (150-450)
[2018-12-18 05:35] LABS: ALBUMIN 2.3 GM/DL (3.2-5.2); ALT/SGPT 24 U/L (12-78); BILIRUBIN,TOTAL 0.8 MG/DL (0.2-1.0); BLOOD UREA NITROGEN 16 MG/DL (7-18); CARBON DIOXIDE LEVEL 25 MEQ/L (21-32); CHLORIDE LEVEL 100 MEQ/L (98-107); CHOLESTEROL LEVEL 116 MG/DL (< 200); CPK CREATINE PHOSPHOKINASE 70 U/L (26-192); CREATININE FOR GFR 0.68 MG/DL (0.55-1.30); GLOMERULAR FILTRATION RATE > 60.0 (>51); GLUCOSE, FASTING 234 MG/DL (70-100); LDH LACTATE DEHYDROGENASE 212 U/L (84-246); PHOSPHORUS LEVEL 1.4 MG/DL (2.5-4.9); POTASSIUM SERUM 3.6 MEQ/L (3.5-5.1); SODIUM LEVEL 134 MEQ/L (136-145); TOTAL PROTEIN 7.7 GM/DL (6.4-8.2); TRIGLYCERIDES LEVEL 135 MG/DL (<150)
[2018-12-18 05:51] LABS: ABG BASE EXCESS 1.9 (-2.0-2.0); ABG HCO3 26.3 MEQ/L (22.0-26.0); ABG O2 SATURATION 98.3 % (95.0-99.0); ABG PARTIAL PRESSURE CO2 40.4 mmHg (35.0-45.0); ABG PARTIAL PRESSURE O2 101.9 mmHg (75.0-100.0); ABG STANDARD HCO3 26.2 MEQ/L (22.0-26.0); ABG TOTAL CO2 27.5 MEQ/L (22.0-29.0); ABG pH (ARTERIAL) 7.431 UNITS (7.350-7.450)
--- NOTE | 2018-12-18 08:12 | REP ---
Clinical: Respiratory failure. Comparison: 12/17/2018. Findings: Endotracheal tube approximately 2 cm above the maki. Nasogastric tube courses below left hemidiaphragm although the side port appears to be above the gastroesophageal junction. Trace left basilar atelectasis cannot be excluded. No effusion. No pneumothorax. Skeletal structures intact. Impression: Trace left basilar atelectasis. N G T side port above the gastroesophageal junction. Electronically Signed by Marino Saucedo MD 12/18/2018 08:03 A
[2018-12-18] MEDS: PANTOPRAZOLE 40MG INJ (PROTONIX) (C9113) IV SCH (08:57)
[2018-12-18] MEDS: ENOXAPARIN 40 MG/0.4 ML SYRINGE (J1650) SC SCH (08:57)
[2018-12-18] MEDS: cefTRIAXone SOD 2 GM in D5W MINI-BAG PLUS 50 ML IV SCH ×2 (08:57→20:40)
[2018-12-18] MEDS: NEUTRA-PHOS 1.5 GM PACKET PO SCH (08:58)
[2018-12-18] MEDS: CHLORHEXIDINE GLUCONATE 0.12 % 15ML UDC (PERIDEX ORAL RINSE) MT SCH ×2 (08:58→20:41)
--- NOTE | 2018-12-18 09:32 | CCN ---
DATE OF SERVICE: 12/18/2018 Critical care time was 1 hour this excludes all procedures. Ms. Gibsno is on sedation overnight. It had been increased to 20 of propofol. This morning after being off propofol for half an hour has no spontaneous movements. Again, will await for awakening for spontaneous breathing trial this morning. Yesterday she did have purposeful movements on her sedation vacation. Her fever appears to be trending down currently it is 100.2. T-max yesterday at 1600 was 102.6. She remains on mechanical ventilation [facility] with an arterial blood gas of 7.43, pCO2 of 40, pAO2 of 101.9 on an FiO2 of 0.35. The patient remains on an insulin drip for hyperglycemia. PHYSICAL EXAMINATION: VITAL SIGNS: Temperature now 100.2, T-max 102.6, pulse is 87 and respiratory rate is 18, blood pressure is 111/56 with a mean arterial pressure 74, oxygen saturation 99% on 0.35 FiO2. INTAKE AND OUTPUT: 834 in and 325 out. GENERAL: Patient is sedated on mechanical ventilation. Currently has no purposeful movements, but reportedly had purposeful movements yesterday. Attempted to keep her off propofol however, it was turned on overnight. HEENT: Pupils are 3 mm, reactive to light. Mucous membranes are moist without lesions. Tongue is midline. NECK: Supple. No tracheal deviation or mass. No cervical, supraclavicular, or axillary adenopathy. CARDIAC: I do auscultate a grade 2/6 systolic ejection murmur heard best at the left second intercostal space. This does not radiate to the apex. I do hear the murmur radiating to the left carotid. PULMONARY: Clear to auscultation without rales, rhonchi or wheezes. No dullness to percussion. No accessory muscle use. ABDOMEN: Minimally distended but soft. Hyperactive bowel sounds are present. No discernible hepatosplenomegaly. No masses or hernia. EXTREMITIES: No cyanosis, clubbing or edema. SKIN: There is a variable macular blanchable rash that is on both lower extremities, on the abdomen, improved yesterday, slightly worse today. No evidence of open lesions. No evidence of jaundice. MUSCULOSKELETAL: MPO boots have been placed. There is no evidence of joint effusion or fracture. NEUROLOGIC: No evidence of seizure activity. Some purposeful movement on removal of sedation yesterday. Chest x-ray shows endotracheal tube in good place. Some increased vascular congestion on chest x-ray. No evidence of pleural effusion. OG and NG tubes are in appropriate position. White blood cell count is now down to 9.1, hemoglobin of 11, platelet count is at 67. Sodium is 134, potassium 3.6, chloride is 100, bicarb of 25, BUN of 16, creatinine of 0.68 with a glucose of 234 this morning. Hemoglobin A1c was measured as 11.7, therefore elevated. IMPRESSION: 1. Bacterial meningitis with sepsis without evidence of shock. Will continue ceftriaxone, vancomycin, Decadron. As we have Streptococcus pneumonia by PCR of the CSF, will continue to require Decadron for at least 4 days. No evidence of seizure activity currently. 2. Hyperglycemia. Likely secondary to steroids in the face of undiagnosed diabetes. Will remain on insulin drip until blood sugars are reliably less than 180. 3. Respiratory failure secondary to Metabolic Encephalopathy. Will continue on mechanical ventilation until the patient's neurologic status improves. If she awakes and follows commands on sedation vacation will place the patient on a spontaneous breathing trial. Trial of extubation may be attempted if she passes a spontaneous breathing trial. 4. Hypophosphatemia. Replaced per tube. 5. Thrombocytopenia. At this point in time, no indication for stopping deep vein thrombosis (DVT) prophylaxis; however, if her platelet count decreases anymore I will hold Lovenox as it is likely secondary to the severity of sepsis. There is no evidence of HIT. 6. GI prophylaxis with Protonix. 7. DVT prophylaxis with Lovenox. The patient remains critically ill. Critical care time was 1 hour as mentioned above. MTDD
--- NOTE | 2018-12-18 10:00 | PHACANCOPD ---
PHARMACY VANCOMYCIN DOSING Pt Demographics Demographics Patient Age:58 , Weight:77.600 , Gender: female Adjusted Body Weight Date: 12/15/18, Adjusted Body Weight: Kg Vancomycin Vancomycin indication: BACTERIAL MENINGITIS Vancomycin Target Ranges: 15-20 mcg/ml Vancomycin Load Y/N: Yes Load Dose Date Time Vancomycin Load Dose: 2000mg Date: 12-16 Time: 0000 Vancomycin Dose Date: 12/15/18. Current Vancomycin Dose: [1000mg q8h] Intermittent Dosing?: No Labs Micro Microbiology 12/15/18 Blood Culture - Preliminary, Resulted No Growth after 48 hours. All Specime... 12/15/18 - Final, Complete Streptococcus Pneumoniae 12/15/18 Gram Stain - Final, Complete 12/15/18 CSF Culture - Final, Complete 12/16/18 Gram Stain - Final, Resulted 12/16/18 Sputum Culture - Preliminary, Resulted Streptococcus Pneumoniae 12/15/18 Respiratory Virus Panel (PCR) (FERMIN) - Final, Complete Creatinine Clearance Date:12/15/18. Creatinine Clearance: [~60]. Pending Labs Trough 12-16 @1500 Assessment and Plan Maintaining Current Dose?: No Reason for dose change: Trough too low Pharmacist Note Pharmacist Note 12/18/18: Day #4 IV vancomycin for the treatment of bacterial meningitis. Last nights trough level resulted at 9.7mcg/ml. We have increased the patient's regimen from 1g IV Q8H to 1500mg IV Q8H and will give a 2g loading dose today at 1200. Scr remains stable today at 0.68 from 0.76 yesterday. A follow-up vancomycin level has been scheduled to be drawn tomorrow at 1100. We will continue to monitor and further dose adjust if needed. Date: 12/15/18. Pharmacist note:Will monitor and make adjustments as needed. [facility] Dec 18, 2018 10:00
[2018-12-18] MEDS ORDERED: VANCOMYCIN HCL 1,000 MG, VIAL MATE ADAPTER 1 EACH in NS 250 ML IV ONE (13:00)
--- NOTE | 2018-12-18 14:48 | ECHO ---
DATE OF STUDY: 12/18/2018 REFERRING PROVIDER: Dr. Nate Yanes PATIENT LOCATION: Room 3205 REASON FOR ECHOCARDIOGRAM: Heart murmur. 2D MEASUREMENTS: IVS: 1.2 cm LV: 4.9 cm LVPW: 1.1 cm LA: 3.8 cm Aorta: 2.6 cm IVC: 1.4 cm DOPPLER MEASUREMENTS: Peak velocity across the aortic valve: 2.4 m/s Peak velocity across the LVOT: 1.4 m/s Peak gradient across the aortic valve: 16 mmHg Mean gradient across the aortic valve: 8 mmHg Mitral E: 1.1 Mitral A: 1.0 with a ratio of 1.0 2D COMMENTS: 1. Normal left ventricular size, wall thickness, and normal global left ventricular systolic function. The estimated left ventricular systolic ejection fraction is 65-70%. 2. Normal left atrium. Normal right atrium and right ventricle. 3. The atrial septum appeared to be normal without evidence of defect or shunt. 4. Normal aortic root. 5. No pericardial effusion seen. 6. Mildly calcified aortic valve, leaflet excursion appeared to be minimally restricted. Normal mitral valve, tricuspid valve. The pulmonic valve and proximal pulmonary artery branches also appeared to be normal. 7. The inferior vena cava was normal in size, central venous pressure is most likely normal. DOPPLER: It detects trace mitral regurgitation. Abnormal relaxation pattern was noted across the mitral valve annulus. IMPRESSION: 1. Normal global left ventricular systolic function. There were some features of left ventricular diastolic dysfunction manifested by abnormal relaxation. 2. Aortic valve sclerosis with minimal mild aortic stenosis, but no aortic regurgitation. 3. Trace isolated mitral regurgitation. MTDD
[2018-12-18] MEDS ORDERED: MIDAZOLAM INJ 2 MG/2 ML VIAL (J2250) IV PRN (18:00)
[2018-12-18] MEDS: VANCOMYCIN HCL 500 MG in D5W MINI-BAG PLUS 100 ML IV SCH (20:41)
[2018-12-19] VITALS (24 sets, daily range): BP systolic 118–145; BP diastolic 55–69
[2018-12-19] MEDS: IPRATROPIUM 0.5MG/ALBUTEROL 2.5MG INH SOL UD 3ML (DUONEB)(J7620) NEB SCH ×5 (00:03→20:25)
[2018-12-19] MEDS: INSULIN IV RATE CHANGE DOCUMENTATION ML/HR XX SCH ×8 (01:11→22:44)
[2018-12-19] MEDS: VANCOMYCIN HCL 1,000 MG, VIAL MATE ADAPTER 1 EACH in NS 250 ML IV SCH (04:37)
[2018-12-19] MEDS: VANCOMYCIN HCL 500 MG in D5W MINI-BAG PLUS 100 ML IV SCH (04:38)
[2018-12-19] MEDS: dexameTHASONE 20 MG/5 ML VIAL (J1100) IV SCH (04:38)
[2018-12-19 05:46] LABS: ABG BASE EXCESS 0.5 (-2.0-2.0); ABG HCO3 23.5 MEQ/L (22.0-26.0); ABG O2 SATURATION 97.7 % (95.0-99.0); ABG PARTIAL PRESSURE CO2 32.4 mmHg (35.0-45.0); ABG PARTIAL PRESSURE O2 90.6 mmHg (75.0-100.0); ABG STANDARD HCO3 24.9 MEQ/L (22.0-26.0); ABG TOTAL CO2 24.5 MEQ/L (22.0-29.0); ABG pH (ARTERIAL) 7.478 UNITS (7.350-7.450)
[2018-12-19 06:08] LABS: BASO % 0.2 % (0.0-1.0); HEMATOCRIT 33.8 % (36.0-47.0); HEMOGLOBIN 11.2 g/dl (12.0-15.5); LYMPH # 0.3 10^3/uL (1.5-4.5); LYMPH % 5.8 % (24.0-44.0); MEAN CORPUSCULAR HEMOGLOBIN 28.6 pg (27.0-33.0); MEAN CORPUSCULAR HGB CONC 33.1 g/dl (32.0-36.5); MEAN CORPUSCULAR VOLUME 86.2 fl (80.0-96.0); MONO # 0.2 10^3/uL (0.0-0.8); MONO % 4.1 % (0.0-5.0); NEUTROPHILS # 5.3 10^3/uL (1.8-7.7); NEUTROPHILS % 89.2 % (36.0-66.0); RED BLOOD COUNT 3.92 10^6/uL (4.00-5.40); WHITE BLOOD COUNT 5.9 10^3/uL (4.0-10.0)
[2018-12-19 06:09] LABS: PLATELET COUNT, AUTOMATED 70 10^3/uL (150-450)
[2018-12-19 06:34] LABS: ALBUMIN 2.1 GM/DL (3.2-5.2); ALT/SGPT 24 U/L (12-78); BLOOD UREA NITROGEN 21 MG/DL (7-18); CALCIUM LEVEL 7.7 MG/DL (8.5-10.1); CARBON DIOXIDE LEVEL 25 MEQ/L (21-32); CHLORIDE LEVEL 103 MEQ/L (98-107); CHOLESTEROL LEVEL 139 MG/DL (< 200); CPK CREATINE PHOSPHOKINASE 99 U/L (26-192); CREATININE FOR GFR 0.57 MG/DL (0.55-1.30); GLOMERULAR FILTRATION RATE > 60.0 (>51); GLUCOSE, FASTING 236 MG/DL (70-100); LDH LACTATE DEHYDROGENASE 217 U/L (84-246); PHOSPHORUS LEVEL 1.9 MG/DL (2.5-4.9); POTASSIUM SERUM 3.6 MEQ/L (3.5-5.1); SODIUM LEVEL 136 MEQ/L (136-145); TOTAL PROTEIN 7.1 GM/DL (6.4-8.2); TRIGLYCERIDES LEVEL 120 MG/DL (<150)
[2018-12-19] MEDS: CHLORHEXIDINE GLUCONATE 0.12 % 15ML UDC (PERIDEX ORAL RINSE) MT SCH (08:14)
[2018-12-19] MEDS: PANTOPRAZOLE 40MG INJ (PROTONIX) (C9113) IV SCH (08:14)
[2018-12-19] MEDS: NEUTRA-PHOS 1.5 GM PACKET PO SCH (08:14)
[2018-12-19] MEDS: ENOXAPARIN 40 MG/0.4 ML SYRINGE (J1650) SC SCH (08:14)
[2018-12-19] MEDS: cefTRIAXone SOD 2 GM in D5W MINI-BAG PLUS 50 ML IV SCH ×2 (08:15→21:27)
--- NOTE | 2018-12-19 09:03 | REP ---
Clinical: Respiratory failure. Comparison: 12/18/2018. Findings: Endotracheal tube approximately 2.0 cm above the maki. Nasogastric tube extends to the level of the gastroesophageal junction with the side port in the distal esophagus requiring advancement. Mediastinum and cardiac silhouette are stable. Lung bragg demonstrate chronic changes and trace left basilar atelectasis cannot be excluded. No obvious effusion. No pneumothorax. Skeletal structures intact. Impression: 1. Nasogastric tube warrants advancement. 2. Minimal left basilar atelectasis. Cannot exclude small layering left effusion. Electronically Signed by Marino Saucedo MD 12/19/2018 08:55 A
--- NOTE | 2018-12-19 10:39 | CCN ---
DATE OF SERVICE: 12/19/2018 Patty has had a sedation vacation since yesterday morning. This morning she is opening her eyes, does still appear weak, does move her right arm more than her left. Not following commands reliably but will move her head when asked at times. She has been on pressure support mechanical ventilation overnight, showing tidal volumes of anywhere from 530. She has had no elevated respiratory shallow breathing index. She is able to cough. She has a positive air leak. She has had no evidence of seizure activity. She has had no return of the rash since propofol was discontinued. Also her fever has trended down. PHYSICAL EXAMINATION: Temperature 98.6, blood pressure is 123/60, heart rates 91 with a respiratory rate of 16 on pressure support 5/5. Arterial blood gas on that setting is with a pH of 7.48, pCO2 of 32, pO2 of 91. General: The patient is awake, looking around the room, recognizing faces of her family members. Not completely cooperative, however intermittently following instructions, but does not appear to be sleepy. She does appear to be weak. HEENT: Sclera clear and anicteric. Pupils equal and reactive to light. Mucous membranes moist without lesions. Tongue is midline. NECK: Supple. No tracheal deviation or mass. LYMPH: No cervical, supraclavicular, or axillary adenopathy. CARDIAC: Regular S1-S2 with a grade 2/6 systolic ejection murmur. PULMONARY: Clear to auscultation without rales, rhonchi or wheezes. No dullness to percussion. ABDOMEN: Soft, nontender, nondistended with hyperactive bowel sounds. No mass or hernia. EXTREMITIES: No cyanosis, clubbing or edema. MPO boots are in place. SKIN: No rash, jaundice or bruising. MUSCULOSKELETAL: Not completely following commands, therefore I could not test muscle weakness but appears weak. No significant muscle wasting. No joint effusions. NEURO: As mentioned above. Pupils are reactive to light. There is no evidence of seizure activity or tremor. Laboratory evaluation shows a sodium of 136, potassium 3.6, chloride 103, bicarb 25, BUN of 21, creatinine 0.57 with a glucose of 236. Arterial blood gas shows a pH of 7.48, pCO2 of 32, PaO2 of 91. White blood cell count is down to 5.9 with a hemoglobin of 11.2 and platelet count of 70. Chest x-ray this morning shows endotracheal tube in good placement without any significant infiltrate. Echocardiogram from yesterday shows normal LV size, wall thickness. Normal left atrium. No evidence of shunt. Normal aortic root. No evidence of pericardial effusion. Some aortic valve sclerosis without stenosis. IVC was normal size. I am confused by the reading, I will have to clarify this with cardiology as it says that the Doppler detects trace mitral regurgitation; however, this is not mentioned in the impression. IMPRESSION: 1. Streptococcal meningitis presenting with sepsis without shock with metabolic encephalopathy. Will DC vancomycin. The patient is on ceftriaxone sensitivities. Sputum culture shows a pansensitive streptococcal pneumonia. She has been 4 days on Decadron therefore will discontinue this especially due to her hyperglycemia. 2. Respiratory failure. Trial of extubation this morning. 3. Hyperglycemia with underlying diabetes. Will remain on insulin drip today and convert over to regular insulin tomorrow. 4. Thrombocytopenia. Currently at 70. No indication to discontinue DVT prophylaxis at this point in time. 5. Hyperphosphatemia being replaced p.o. MTDD
[2018-12-19] MEDS: ACETAMINOPHEN 325 MG/10.15 ML UDC GT PRN (15:21)
[2018-12-19] MEDS: diphenhydrAMINE 25 MG CAP PO PRN (21:27)
[2018-12-20] VITALS (11 sets, daily range): BP systolic 118–171; BP diastolic 59–78
[2018-12-20] MEDS: IPRATROPIUM 0.5MG/ALBUTEROL 2.5MG INH SOL UD 3ML (DUONEB)(J7620) NEB SCH ×5 (00:10→19:12)
[2018-12-20] MEDS: INSULIN IV RATE CHANGE DOCUMENTATION ML/HR XX SCH ×6 (00:49→06:38)
[2018-12-20 04:58] LABS: BASO % 0.2 % (0.0-1.0); HEMATOCRIT 37.2 % (36.0-47.0); HEMOGLOBIN 12.3 g/dl (12.0-15.5); LYMPH # 0.4 10^3/uL (1.5-4.5); LYMPH % 5.5 % (24.0-44.0); MEAN CORPUSCULAR HEMOGLOBIN 28.3 pg (27.0-33.0); MEAN CORPUSCULAR HGB CONC 33.1 g/dl (32.0-36.5); MEAN CORPUSCULAR VOLUME 85.7 fl (80.0-96.0); MONO # 0.7 10^3/uL (0.0-0.8); MONO % 10.8 % (0.0-5.0); NEUTROPHILS # 5.3 10^3/uL (1.8-7.7); NEUTROPHILS % 82.4 % (36.0-66.0); RED BLOOD COUNT 4.34 10^6/uL (4.00-5.40); WHITE BLOOD COUNT 6.4 10^3/uL (4.0-10.0)
[2018-12-20 05:00] LABS: PLATELET COUNT, AUTOMATED 86 10^3/uL (150-450)
[2018-12-20 05:23] LABS: ALBUMIN 2.2 GM/DL (3.2-5.2); ALT/SGPT 33 U/L (12-78); BLOOD UREA NITROGEN 24 MG/DL (7-18); CALCIUM LEVEL 8.3 MG/DL (8.5-10.1); CARBON DIOXIDE LEVEL 26 MEQ/L (21-32); CHLORIDE LEVEL 109 MEQ/L (98-107); CHOLESTEROL LEVEL 179 MG/DL (< 200); CPK CREATINE PHOSPHOKINASE 97 U/L (26-192); CREATININE FOR GFR 0.68 MG/DL (0.55-1.30); GLOMERULAR FILTRATION RATE > 60.0 (>51); GLUCOSE, FASTING 157 MG/DL (70-100); LDH LACTATE DEHYDROGENASE 216 U/L (84-246); POTASSIUM SERUM 3.2 MEQ/L (3.5-5.1); SODIUM LEVEL 141 MEQ/L (136-145); TOTAL PROTEIN 7.4 GM/DL (6.4-8.2); TRIGLYCERIDES LEVEL 135 MG/DL (<150)
[2018-12-20] MEDS ORDERED: ACETAMINOPHEN TAB 650MG DOSE (2X325MG) PO PRN (08:30)
[2018-12-20] MEDS: NEUTRA-PHOS 1.5 GM PACKET PO SCH (08:47)
[2018-12-20] MEDS: PANTOPRAZOLE 40MG TAB (PROTONIX) PO SCH (08:48)
[2018-12-20] MEDS: LISINOPRIL 10 MG TAB PO SCH (08:48)
[2018-12-20] MEDS: ENOXAPARIN 40 MG/0.4 ML SYRINGE (J1650) SC SCH (08:49)
[2018-12-20] MEDS: cefTRIAXone SOD 2 GM in D5W MINI-BAG PLUS 50 ML IV SCH ×2 (08:49→21:03)
[2018-12-20] MEDS ORDERED: POTASSIUM CHLORIDE 10% LIQ 20 MEQ/15 ML UDC PO ONE (09:00)
--- NOTE | 2018-12-20 09:11 | CCN ---
DATE OF SERVICE: 12/20/2018 Ms. Gibson is seen in the intensive care unit (ICU). She was extubated yesterday. She has remained afebrile, and she is in communicating. Blood pressure is up some this morning. She also has been on insulin drip, which is being titrated down. She denies any pain. PHYSICAL EXAMINATION: Vital signs: Temperature is 99.0. Pulse 84. Blood pressure currently was 171/76. Pulse oximetry is 91% on room air. General: Patient is awake and alert. She can follow commands. HEENT: Head is normocephalic, atraumatic. Moist mucous membranes. Neck: Neck is supple. No cervical lymphadenopathy. No jugular venous distention (JVD). Trachea is midline. Chest: Clear to auscultation bilaterally. No wheezes, rales, rhonchi or crackles. Heart: Regular rate and rhythm. S1, S2. No murmurs. Abdomen: Positive bowel sounds. Soft. Nontender. No rebound or guarding. Extremities: No clubbing, cyanosis or edema. Skin was without rash. LABORATORY DATA: WBC 6.4, hemoglobin 12.3, hematocrit 37.2, platelets 86. Sodium 141, potassium 3.2, chloride 109, carbon dioxide 26, BUN 24, creatinine 0.68, glucose 157, calcium 8.3, phosphorus 2.0, total bilirubin 1.0, AST 39, ALT 33, alkaline phosphatase 75, LD 216, CK 97, total protein 7.4, albumin 2.2, triglycerides 135, cholesterol 179. Sputum culture grew Streptococcus pneumoniae. CSF was positive PCR for Streptococcus pneumonia. ASSESSMENT AND PLAN: 1. Bacterial meningitis. Patient had presented to with sepsis and metabolic encephalopathy. She has been receiving intravenous (IV) ceftriaxone. She had been getting IV vancomycin as well, but this was discontinued yesterday. She had been on Decadron, which has been discontinued. She was extubated yesterday and does appear to be improving. She is still quite weak and will require physical therapy for deconditioning. 2. Deconditioning. Patient will require physical therapy. 3. Hypertension. Patient's blood pressures have been elevated. She will be started on lisinopril 10 mg daily. She likely does have diabetes as her hemoglobin A1c initially was also quite high at 11.7. Therefore, we will start her on lisinopril. 4. Diabetes mellitus, type 2. Patient has been on an insulin drip. This will be discontinued and she will be changed to sliding-scale insulin with fingersticks before food and nightly as her diet will be increased to consistent carbohydrate. Monitor her blood sugars closely to determine if she will need additional basal insulin. DISPOSITION: Patient has improved. We will contact hospitalist to transfer to hospitalist service.
[2018-12-20] MEDS: HumaLOG INSULIN (NovoLOG) PER UNIT SC SCH ×3 (11:57→21:03)
[2018-12-20 14:29] LABS: C REACTIVE PROTEIN QUANTITATIV 3.62 MG/DL (0.00-0.30)
[2018-12-21] MEDS: IPRATROPIUM 0.5MG/ALBUTEROL 2.5MG INH SOL UD 3ML (DUONEB)(J7620) NEB SCH ×7 (00:29→23:41)
[2018-12-21 00:50] VITALS: BP 130/60
[2018-12-21] MEDS: diphenhydrAMINE 25 MG CAP PO PRN (05:03)
[2018-12-21 06:00] VITALS: BP 146/67
[2018-12-21 08:39] LABS: BASO % 0.1 % (0.0-1.0); EOS % 0.1 % (0.0-3.0); HEMATOCRIT 36.2 % (36.0-47.0); LYMPH # 0.9 10^3/uL (1.5-4.5); LYMPH % 8.7 % (24.0-44.0); MEAN CORPUSCULAR HEMOGLOBIN 28.2 pg (27.0-33.0); MEAN CORPUSCULAR HGB CONC 33.1 g/dl (32.0-36.5); MEAN CORPUSCULAR VOLUME 85.2 fl (80.0-96.0); MONO # 0.8 10^3/uL (0.0-0.8); MONO % 7.9 % (0.0-5.0); NEUTROPHILS # 8.3 10^3/uL (1.8-7.7); PLATELET COUNT, AUTOMATED 109 10^3/uL (150-450); RED BLOOD COUNT 4.25 10^6/uL (4.00-5.40); WHITE BLOOD COUNT 10.2 10^3/uL (4.0-10.0)
[2018-12-21] MEDS: NEUTRA-PHOS 1.5 GM PACKET PO SCH (09:00)
[2018-12-21 09:01] LABS: ALBUMIN 2.4 GM/DL (3.2-5.2); ALT/SGPT 41 U/L (12-78); BILIRUBIN,TOTAL 1.3 MG/DL (0.2-1.0); BLOOD UREA NITROGEN 17 MG/DL (7-18); C REACTIVE PROTEIN QUANTITATIV 2.49 MG/DL (0.00-0.30); CALCIUM LEVEL 8.1 MG/DL (8.5-10.1); CARBON DIOXIDE LEVEL 25 MEQ/L (21-32); CHLORIDE LEVEL 106 MEQ/L (98-107); CREATININE FOR GFR 0.63 MG/DL (0.55-1.30); GLOMERULAR FILTRATION RATE > 60.0 (>51); GLUCOSE, FASTING 256 MG/DL (70-100); MAGNESIUM LEVEL 1.9 MG/DL (1.8-2.4); POTASSIUM SERUM 3.4 MEQ/L (3.5-5.1); SODIUM LEVEL 138 MEQ/L (136-145); TOTAL PROTEIN 6.8 GM/DL (6.4-8.2)
[2018-12-21] MEDS: cefTRIAXone SOD 2 GM in D5W MINI-BAG PLUS 50 ML IV SCH ×2 (09:08→22:28)
[2018-12-21] MEDS: LISINOPRIL 10 MG TAB PO SCH (09:09)
[2018-12-21] MEDS: PANTOPRAZOLE 40MG TAB (PROTONIX) PO SCH (09:09)
[2018-12-21] MEDS: HumaLOG INSULIN (NovoLOG) PER UNIT SC SCH ×4 (09:10→21:00)
[2018-12-21] MEDS: ENOXAPARIN 40 MG/0.4 ML SYRINGE (J1650) SC SCH (09:11)
[2018-12-21] MEDS ORDERED: ALPRAZolam 0.25 MG TAB PO ONE (13:00)
[2018-12-21] MEDS ORDERED: PROHANCE 279.3MG/ML 15ML VIAL (A9576) As Ordered ONE (13:14)
[2018-12-21] MEDS ORDERED: LORazepam 2 MG/ML VIAL (J2060) IV STA (13:38)
[2018-12-21 14:00] VITALS: BP 133/66
--- NOTE | 2018-12-21 15:00 | REP ---
MR BRAIN WITHOUT CONTRAST: HISTORY: Pneumococcal meningitis. COMPARISON: CT 12/15/2018. The examination is incomplete and limited secondary to motion. Punctate areas of increased signal intensity on diffusion and T2-weighted images are present in the left basal ganglia , left temporal and parietal lobes. These are decreased in signal intensity on ADC images and are consistent with acute infarctions. Areas of increased signal intensity on T2-weighted images are present in the periventricular and subcortical white matter. This represent small vessel ischemic disease. There is no intraparenchymal hemorrhage, mass or midline shift. The ventricular system and cortical sulci are dilated consistent with minimal volume loss. Scattered areas of increased signal intensity and diffusion-weighted image are present in the subarachnoid space and in the occipital horns of the lateral ventricles. This may represent leptomeningeal inflammation or possibly subarachnoid and intraventricular hemorrhage. There is no subdural fluid collection. The sinuses are clear. IMPRESSION: 1. There are punctate areas of acute infarction in the left basal ganglia, temporal and parietal lobes. 2. Small vessel ischemic disease. 3. There are areas of increased signal intensity in the subarachnoid space and occipital horns of the lateral ventricles on diffusion-weighted images that represent leptomeningeal inflammation or possibly subarachnoid and intraventricular hemorrhage. Results were discussed with Dr. Madrigal at 1430 pm 12/21/2018. Electronically Signed by Sergio Hernandez MD 12/21/2018 03:15 P
--- NOTE | 2018-12-21 16:20 | IPNPDOC ---
Subjective Date Seen The patient was seen on 12/21/18. Subjective Chief Complaint/HPI Patient seen and examined at the bedside. According to the patient's daughters who are at the bedside, the patient's mentation is slowly improving. However, she remained confused about place but was oriented to person, date of , and president. Objective Physical Examination General Exam: Positive: Cooperative, No Acute Distress, Other (patient oriented to person, date of , family member names, and president. Not oriented to place, situation, or year) ENT Exam: Positive: Atraumatic, Mucous membr. moist/pink Neck Exam: Negative: JVD Chest Exam: Positive: Clear to auscultation, Normal air movement Heart Exam: Positive: Rate Normal, Normal S1, Normal S2 Abdomen Exam: Positive: Soft; Negative: Tenderness Extremity Exam: Negative: Tenderness, Swelling Assessment /Plan Plan/VTE VTE Prophylaxis Ordered?: Yes Plan Sepsis 2/2 Streptococcal Meningitis CSF Sensitivity noted--patient on Rocephin, s/p Decadron x 3 days WBC elevated this morning, and the patient did have a temp of 100.5 this afternoon CRP markers downward trending ID on board We will cont to monitor the patient Acute CVA of Left Basal Ganglia, Temporal, and Parietal Lobes MRI of the Brain notable for punctate areas of acute infarction in the left basal ganglia, temporal, and parietal lobes. 2D ECHO noted for LV Diastolic Dysfunction, no atrial septum noted Carotid U/S ordered Statin started Will hold off on ASA for now given concern for NAVDEEP vs leptomeningeal inflammation--will defer to Neuro We will move the patient to a telemetry floor to observe for underlying A-Fib Neurochecks ordered Neurology consulted Leptomeningeal Inflammation vs Possible Subarachnoid/Intraventicular Hemorrhage Hold antiplatelet therapy, and Lovenox for DVT prophylaxis until seen by Neuro Neurology consulted Diabetes Mellitus HgbA1c noted to be 11.7% We have started the patient on Levemir ISS for additional coverage HTN Cont Lisinopril DVT Prophylaxis SCDs/TEDs VS, I&O, 24H, Fishbone Vital Signs/I&O Vital Signs Date Time Temp Pulse Resp B/P (MAP) Pulse Ox O2 Delivery O2 Flow Rate FiO2 12/21/18 14:00 100.5 95 20 133/66 (88) 94 12/19/18 16:00 12/19/18 09:00 35 12/17/18 15:59 Ventilator I&O- Last 24 Hours up to 6 AM 12/21/18 06:00 Intake Total 791.4 ml Output Total 955 ml Balance -163.6 ml Laboratory Data 24H LABS Laboratory Tests 2 12/20/18 17:35: Bedside Glucose (Misc Panel) 280H 12/20/18 20:26: Bedside Glucose (Misc Panel) 276H 12/21/18 07:58: Immature Granulocyte % (Auto) 2.2, White Blood Count 10.2H, Red Blood Count 4.25, Hemoglobin 12.0, Hematocrit 36.2, Mean Corpuscular Volume 85.2, Mean Corpuscular Hemoglobin 28.2, Mean Corpuscular Hemoglobin Concent 33.1, Red Cell Distribution Width 14.8H, Platelet Count 109L, Neutrophils (%) (Auto) 81.0H, Lymphocytes (%) (Auto) 8.7L, Monocytes (%) (Auto) 7.9H, Eosinophils (%) (Auto) 0.1, Basophils (%) (Auto) 0.1, Neutrophils # (Auto) 8.3H, Lymphocytes # (Auto) 0.9L, Monocytes # (Auto) 0.8, Eosinophils # (Auto) 0.0, Basophils # (Auto) 0.0, Nucleated Red Blood Cells % (auto) 0.0, Anion Gap 7L, Glomerular Filtration Rate > 60.0, Blood Urea Nitrogen 17, Creatinine 0.63, Sodium Level 138, Potassium Level 3.4L, Chloride Level 106, Carbon Dioxide Level 25, Calcium Level 8.1L, Aspartate Amino Transf (AST/SGOT) 42H, Alanine Aminotransferase (ALT/SGPT) 41, Alkaline Phosphatase 83, Total Bilirubin 1.3H, Total Protein 6.8, Albumin 2.4L, Magnesium Level 1.9, C-Reactive Protein, Quantitative 2.49H, Albumin/Globulin Ratio 0.55L 12/21/18 08:33: Bedside Glucose (Misc Panel) 247H 12/21/18 11:29: Bedside Glucose (Misc Panel) 211H CBC/BMP Laboratory Tests 12/21/18 07:58 Red Blood Count 4.25, Mean Corpuscular Volume 85.2, Mean Corpuscular Hemoglobin 28.2, Mean Corpuscular Hemoglobin Concent 33.1, Red Cell Distribution Width 14.8 H, Neutrophils (%) (Auto) 81.0 H, Lymphocytes (%) (Auto) 8.7 L, Monocytes (%) (Auto) 7.9 H, Eosinophils (%) (Auto) 0.1, Basophils (%) (Auto) 0.1, Neutrophils # (Auto) 8.3 H, Lymphocytes # (Auto) 0.9 L, Monocytes # (Auto) 0.8, Eosinophils # (Auto) 0.0, Basophils # (Auto) 0.0, Calcium Level 8.1 L, Aspartate Amino Transf (AST/SGOT) 42 H, Alanine Aminotransferase (ALT/SGPT) 41, Alkaline Phosphatase 83, Total Bilirubin 1.3 H, Total Protein 6.8, Albumin 2.4 L Microbiology Microbiology 12/15/18 Blood Culture - Final, Complete NO GROWTH AFTER 5 DAYS 12/15/18 - Final, Complete Streptococcus Pneumoniae 12/15/18 Gram Stain - Final, Resulted 12/15/18 CSF Culture - Final, Resulted 12/16/18 Gram Stain - Final, Complete 12/16/18 Sputum Culture - Final, Complete Streptococcus Pneumoniae Haemophilus Influenzae 12/15/18 Respiratory Virus Panel (PCR) (FERMIN) - Final, Complete RADHA REYNA MD Dec 21, 2018 16:20
--- NOTE | 2018-12-21 16:34 | IPN ---
DATE: 12/20/2018 Ms. Gibson is doing much better. She is still in the ICU. She is definitely confused. She does not want to follow certain commands like sitting up or rolling in the bed as she states she is going to fall out of bed on glass. She has remained afebrile. She has no nausea, vomiting or diarrhea. No headache. No neck stiffness. On physical exam temperature is 98.5, pulse 96, respirations 20, blood pressure 138/63, O2 sat 94% on room air. Heart: Normal S1-S2. No murmurs, rubs or gallops. Lungs: Clear. No wheezes, rales or rhonchi. Abdomen is soft, obese, nontender. No visceromegaly. Extremities: No clubbing, cyanosis or edema. Neck is supple with no JVD, no bruit. No stiffness. Neurologic exam: Patient moves all extremities. Strength is normal but definitely is confused. LABORATORY DATA: White count is 6.4, hemoglobin 12.2, hematocrit 37.2, platelets 86, 82% neutrophils, 5% lymphocytes, 10% monocytes. Sodium 141, potassium 3.2, chloride 109, BUN 24, creatinine 0.68, glucose 157, calcium 8.3, phosphorus 2, AST 39, ALT 33, CRP 3.62. CSF cultures were negative. CSF PCR was positive for Streptococcus pneumoniae. Sputum culture had few Haemophilus and few Influenza and few streptococcus pneumonia. Streptococcus had an FERMIN of less than 0.06 and Haemophilus influenza was resistant to Bactrim only. MEDICATIONS: - Rocephin 2 grams IV every 12 hours Vancomycin was discontinued on 12/19. Decadron has been discontinued Chest x-ray done on 12/19 shows the left atelectasis, cannot rule out effusion. IMPRESSION: 1. Streptococcal pneumoniae, bacterial meningitis on IV Rocephin. Strep pneumonia is sensitive to penicillin. IV vancomycin and Decadron have been discontinued. She is doing well extubated but still has some confusion. Will obtain MRI of the brain to rule out abscess. 2. Hypertension. The patient on lisinopril 10 mg daily. 3. New diagnosis of diabetes with HbA1c of 11, glucose has been better controlled since Decadron has been discontinued. PLAN: Continue IV Rocephin for total of 2 weeks. She is currently day number day #6 out of 14. Obtain MRI of brain with contrast tomorrow. Immune workup including HIV, hepatitis C and antibody levels. HIV, hepatitis C were negative. IgG level was 1180 which is quite elevated and IgA 1120. The patient will need Prevnar followed by Pneumovax. She will need to discontinue smoking.
[2018-12-21 17:20] VITALS: BP 123/68
[2018-12-21] MEDS ORDERED: SLF 3 ML SYR IV PRN (17:45)
[2018-12-21 20:00] VITALS: BP 130/62
[2018-12-21] MEDS ORDERED: ASPIRIN 300 MG SUPP PR PRN (20:45)
--- NOTE | 2018-12-21 21:49 | IPNPDOC ---
Subjective Date Seen The patient was seen on 12/21/18. Subjective Chief Complaint/HPI meningitis AMS General: Reports: ROS Unobtainable (patient is sleeping before exam and is largely still confused, has a hard time answering ROS questions) Pulmonary: Reports: Other Symptoms (no SOB or CP) Gastrointestinal: Reports: Other Symptoms (no n/v) Neurological: Reports: Confusion Objective Physical Examination General Exam: Positive: Alert, Cooperative, No Acute Distress, Other (patient continues to be confused on exam today, however she was able to tell us we were bothering her foot by digging into it when checking for babinski reflexes) ENT Exam: Positive: Atraumatic, Mucous membr. moist/pink Neck Exam: Negative: JVD Chest Exam: Positive: Clear to auscultation, Normal air movement Heart Exam: Positive: Rate Normal, Normal S1, Normal S2 Abdomen Exam: Positive: Soft; Negative: Tenderness Extremity Exam: Negative: Tenderness, Swelling Neuro Exam: Positive: Other (+ babinski left foot) Assessment /Plan Assessment 1. Streptococcal pneumoniae, bacterial meningitis on IV Rocephin - Strep pneumonia is sensitive to penicillin. S/P vancomycin and Decadron. -S/P extubation but still has some confusion. Could state that we were examining her feet and "digging" into them on exam today. -MRI of the brain performed today, results discussed with radiologist and reviewed in person, multiple infarcts were seen likely secondary to meningitis, however small chance of subarachnoid hemorrhage. However in light of patients current presentation and clinical picture, this fits more with meningitis as over 30% of cases of pneumococcus meningitis can show infarcts on MRI of the brain. Suspect these will improve with improvement of the meningitis. -Continue on IV Rocephin for total of 2 weeks. Day #7. -HIV, hepatitis C were negative. IgG level was 1180 which is quite elevated and IgA 1120 -The patient will need Prevnar followed by Pneumovax -She will need to discontinue smoking. 2. Hypertension -C/w lisinopril 10 mg daily 3. New diagnosis of diabetes with HbA1c of 11 - glucose has been better controlled since Decadron has been discontinued -Patient will need follow up with PCP after d/c to discuss senior living management of her diabetes and monitoring Plan/VTE VTE Prophylaxis Ordered?: Yes VS, I&O, 24H, Fishbone Vital Signs/I&O Vital Signs Date Time Temp Pulse Resp B/P (MAP) Pulse Ox O2 Delivery O2 Flow Rate FiO2 12/21/18 20:00 99.1 101 18 130/62 (84) 98 12/19/18 16:00 12/19/18 09:00 35 12/17/18 15:59 Ventilator I&O- Last 24 Hours up to 6 AM 12/21/18 05:59 Intake Total 671.4 ml Output Total 1055 ml Balance -383.6 ml Laboratory Data 24H LABS Laboratory Tests 2 12/21/18 07:58: Immature Granulocyte % (Auto) 2.2, White Blood Count 10.2H, Red Blood Count 4.25, Hemoglobin 12.0, Hematocrit 36.2, Mean Corpuscular Volume 85.2, Mean Corpuscular Hemoglobin 28.2, Mean Corpuscular Hemoglobin Concent 33.1, Red Cell Distribution Width 14.8H, Platelet Count 109L, Neutrophils (%) (Auto) 81.0H, Lymphocytes (%) (Auto) 8.7L, Monocytes (%) (Auto) 7.9H, Eosinophils (%) (Auto) 0.1, Basophils (%) (Auto) 0.1, Neutrophils # (Auto) 8.3H, Lymphocytes # (Auto) 0.9L, Monocytes # (Auto) 0.8, Eosinophils # (Auto) 0.0, Basophils # (Auto) 0.0, Nucleated Red Blood Cells % (auto) 0.0, Anion Gap 7L, Glomerular Filtration Rate > 60.0, Blood Urea Nitrogen 17, Creatinine 0.63, Sodium Level 138, Potassium Level 3.4L, Chloride Level 106, Carbon Dioxide Level 25, Calcium Level 8.1L, Aspartate Amino Transf (AST/SGOT) 42H, Alanine Aminotransferase (ALT/SGPT) 41, Alkaline Phosphatase 83, Total Bilirubin 1.3H, Total Protein 6.8, Albumin 2.4L, Magnesium Level 1.9, C-Reactive Protein, Quantitative 2.49H, Albumin/Globulin Ratio 0.55L 12/21/18 08:33: Bedside Glucose (Misc Panel) 247H 12/21/18 11:29: Bedside Glucose (Misc Panel) 211H 12/21/18 16:49: Bedside Glucose (Misc Panel) 203H CBC/BMP Laboratory Tests 12/21/18 07:58 Red Blood Count 4.25, Mean Corpuscular Volume 85.2, Mean Corpuscular Hemoglobin 28.2, Mean Corpuscular Hemoglobin Concent 33.1, Red Cell Distribution Width 14.8 H, Neutrophils (%) (Auto) 81.0 H, Lymphocytes (%) (Auto) 8.7 L, Monocytes (%) (Auto) 7.9 H, Eosinophils (%) (Auto) 0.1, Basophils (%) (Auto) 0.1, Neutrophils # (Auto) 8.3 H, Lymphocytes # (Auto) 0.9 L, Monocytes # (Auto) 0.8, Eosinophils # (Auto) 0.0, Basophils # (Auto) 0.0, Calcium Level 8.1 L, Aspartate Amino Transf (AST/SGOT) 42 H, Alanine Aminotransferase (ALT/SGPT) 41, Alkaline Phosphatase 83, Total Bilirubin 1.3 H, Total Protein 6.8, Albumin 2.4 L Microbiology Microbiology 12/15/18 Blood Culture - Final, Complete NO GROWTH AFTER 5 DAYS 12/15/18 - Final, Complete Streptococcus Pneumoniae 12/15/18 Gram Stain - Final, Resulted 12/15/18 CSF Culture - Final, Resulted 12/16/18 Gram Stain - Final, Complete 12/16/18 Sputum Culture - Final, Complete Streptococcus Pneumoniae Haemophilus Influenzae 12/15/18 Respiratory Virus Panel (PCR) (FERMIN) - Final, Complete GME ATTESTATION GME ATTESTATION My faculty preceptor for this patient encounter was physically present during the encounter and was fully available. All aspects of the patient interview, examination, medical decision making process, and medical care plan development were reviewed and approved by the faculty preceptor. The faculty preceptor is aware and concurs with the plan as stated in the body of this note and will attest to such by his/her cosignature. LACIE DELGADO DO Dec 21, 2018 21:49
[2018-12-21] MEDS: SLF 3 ML SYR IV SCH (22:00)
[2018-12-21] MEDS: ATORVASTATIN 20 MG TAB PO SCH (22:28)
[2018-12-21] MEDS: dexameTHASONE 20 MG/5 ML VIAL (J1100) IV SCH (22:28)
[2018-12-21] MEDS: ASPIRIN 81 MG ENTERIC TAB PO SCH (22:28)
[2018-12-22] VITALS (8 sets, daily range): BP systolic 105–150; BP diastolic 57–70
[2018-12-22] MEDS: IPRATROPIUM 0.5MG/ALBUTEROL 2.5MG INH SOL UD 3ML (DUONEB)(J7620) NEB SCH ×6 (04:00→23:37)
[2018-12-22] MEDS: SLF 3 ML SYR IV SCH ×3 (05:07→21:37)
[2018-12-22 05:20] LABS: BASO % 0.3 % (0.0-1.0); EOS % 0.1 % (0.0-3.0); HEMATOCRIT 36.3 % (36.0-47.0); HEMOGLOBIN 11.7 g/dl (12.0-15.5); LYMPH # 0.5 10^3/uL (1.5-4.5); LYMPH % 5.2 % (24.0-44.0); MEAN CORPUSCULAR HEMOGLOBIN 28.2 pg (27.0-33.0); MEAN CORPUSCULAR HGB CONC 32.2 g/dl (32.0-36.5); MEAN CORPUSCULAR VOLUME 87.5 fl (80.0-96.0); MONO # 0.2 10^3/uL (0.0-0.8); MONO % 1.8 % (0.0-5.0); NEUTROPHILS # 8.8 10^3/uL (1.8-7.7); NEUTROPHILS % 88.3 % (36.0-66.0); PLATELET COUNT, AUTOMATED 121 10^3/uL (150-450); RED BLOOD COUNT 4.15 10^6/uL (4.00-5.40); WHITE BLOOD COUNT 9.9 10^3/uL (4.0-10.0)
[2018-12-22 05:39] LABS: ALBUMIN 2.2 GM/DL (3.2-5.2); ALT/SGPT 42 U/L (12-78); BLOOD UREA NITROGEN 19 MG/DL (7-18); C REACTIVE PROTEIN QUANTITATIV 2.79 MG/DL (0.00-0.30); CALCIUM LEVEL 7.6 MG/DL (8.5-10.1); CARBON DIOXIDE LEVEL 24 MEQ/L (21-32); CHLORIDE LEVEL 103 MEQ/L (98-107); CREATININE FOR GFR 0.71 MG/DL (0.55-1.30); GLOMERULAR FILTRATION RATE > 60.0 (>51); GLUCOSE, FASTING 359 MG/DL (70-100); SODIUM LEVEL 135 MEQ/L (136-145); TOTAL PROTEIN 6.6 GM/DL (6.4-8.2)
[2018-12-22] MEDS: HumaLOG INSULIN (NovoLOG) PER UNIT SC SCH ×4 (07:30→21:36)
--- NOTE | 2018-12-22 07:31 | CR ---
DATE OF CONSULTATION: 12/21/2018 REFERRING PHYSICIAN: Dr. Julius Berry. REASON FOR CONSULTATION: Altered mental status meningitis and stroke. HISTORY OF PRESENT ILLNESS: Patty Gibson is a 58-year-old woman who was admitted at [facility] on December 15, 2018 in the evening with altered mental status. The patient lives in an apartment across of fall from her daughter. Daughter went to see her the patient told her that she had not slept the night before. She had headache all day. She was laying on her couch taking naps here and there. In the evening when they tired to wake her up she appeared to have slurred speech. She was brought to [facility] by EMS. She complained of headache and neck stiffness. According to the patient's daughter she does not complain much and avoid going to the squared to doctor's office. She was found to have fever 101.7 with heart rate 140 and systolic blood pressure in the 200s. She had spinal tap which showed WBCs 8997 and 2014 451. She was started on vancomycin and ceftriaxone with Decadron 10 mg IV every 6 hours. She was intubated and was on mechanical ventilation for 3 days. She was extubated on Thursday. According to daughter the patient has not been sleeping for last couple of days. Earlier today she was able to go to the bathroom with assistance. She sat up and fed herself. She had slurring of speech. She had Ativan before her MRI scan of brain is summarized below. She is currently sleeping. She wakes up briefly. She answers couple of questions and moves extremities and falls back asleep. History was obtained from the patient's daughter and electronic medical records. DIAGNOSTIC STUDIES: MRI scan of brain was reviewed and showed small multiple left basal ganglia and left temporal and parietal acute ischemic strokes and increased signal on Keppra DWI sequence of MRI brain and leptomeninges and occipital horns of lateral ventricle due to inflammation. This was likely due to the patient's current meningitis. Her capital CSF showed WBCs 8997 with total protein 441 and 77.6% neutrophils and 22.4% mononuclear cells. PAST MEDICAL HISTORY: History of alcohol abuse but sober for 2 years. History of tobacco abuse. section. CURRENT MEDICATIONS: Ceftriaxone 2 grams IV twice a day, insulin Levemir, Lipitor, Protonix, lisinopril. SOCIAL HISTORY: She lives at home with a cat. She has eight children. She smokes half pack per day. She has not had alcohol in 2 years. She denies any alcohol or illicit drugs currently. FAMILY HISTORY: Noncontributory. REVIEW OF SYSTEMS: All systems were reviewed with the patient's daughter and found to be noncontributory except as mentioned in history of present illness. PHYSICAL EXAMINATION: Temperature 98.2, pulse 96, respiratory 20, blood pressure 123/68, heart regular rate rhythm. Lungs clear to auscultation. Abdomen: Soft, nontender, nondistended, no pedal edema. No musculoskeletal abnormalities. No rash. No signs of meningeal irritation. She no tremor or dysmetria. The patient is drowsy due to Ativan. She briefly wakes up and answers a couple of questions and falls back asleep. She appears to have mild dysarthria. She is able to move all four extremities equally well. Plantars are downgoing. Sensory cerebellar testing could not be performed. Gait could not be tested. ASSESSMENT: 1. Pneumococcal meningitis. 2. Small multiple left basal ganglia temporal and parietal stroke secondary to meningitis. 3. Increased signal in leptomeninges on Keppra DWI a sequence of MRI scan of brain is likely due to inflammatory process of bacterial meningitis. PLAN: 1. MRA brain. 2. Restart Decadron 10 mg IV twice a day for three more days. The patient finished Decadron 10 mg IV four times a day for 3 days earlier. 3. Aspirin 81 mg by mouth daily. If she is unable to take aspirin orally tonight we can give her aspirin 300 mg rectally once and then continue 81 mg by mouth daily. 4. Continue ceftriaxone 2 grams IV twice a day. 5. Physical and occupational therapy. Consider inpatient rehabilitation. 6. Follow with our office in 1 month after hospital discharge await results of ultrasound of carotid arteries.
--- NOTE | 2018-12-22 07:35 | REP ---
Clinical: Acute cerebrovascular accident. Technique: Smith scale and color Doppler evaluation using linear high frequency transducer Findings: Two-dimensional smith scale and color images demonstrate minimal mixed atheromatous plaquing with normal laminar flow and no appreciable narrowing. Color Doppler interrogation demonstrates normal arterial wave patterns and velocities with no significant spectral broadening. Normal flow direction is appreciated in the bilateral vertebral arteries. RIGHT (cm/s) LEFT (cm/s) ICA peak systolic velocity 83.1 115.8 ICA diastolic velocity 14.2 16.4 ECA peak systolic velocity 101.8 166.6 CCA peak systolic velocity 115.5 93.2 ICA/CCA ratio 0.72 1.24 Impression: No hemodynamically significant areas of narrowing or stenosis appreciated. Based on set standards narrowing falls within the less than 50%/normal range. Electronically Signed by Marino Saucedo MD 12/21/2018 04:44 P
[2018-12-22] MEDS: ASPIRIN 81 MG ENTERIC TAB PO SCH (08:15)
[2018-12-22] MEDS: PANTOPRAZOLE 40MG TAB (PROTONIX) PO SCH (08:15)
[2018-12-22] MEDS: NEUTRA-PHOS 1.5 GM PACKET PO SCH (08:15)
[2018-12-22] MEDS: ATORVASTATIN 20 MG TAB PO SCH (08:15)
[2018-12-22] MEDS: cefTRIAXone SOD 2 GM in D5W MINI-BAG PLUS 50 ML IV SCH ×2 (08:16→21:36)
[2018-12-22] MEDS: LEVEMIR (INSULIN DETEMIR) 1 UNITS/0.01ML SC SCH ×2 (08:16→21:37)
[2018-12-22] MEDS: dexameTHASONE 20 MG/5 ML VIAL (J1100) IV SCH ×2 (08:16→21:35)
[2018-12-22] MEDS: LISINOPRIL 10 MG TAB PO SCH (08:17)
--- NOTE | 2018-12-22 15:40 | IPNPDOC ---
Subjective Date Seen The patient was seen on 12/22/18. Subjective Chief Complaint/HPI Patient seen and examined at the bedside. She states that she is feeling much better this morning. The patient's 3 daughters who were at the bedside state the patient's mentation is back to baseline. The patient notes that she has been ambulating back and forth to the bathroom this morning with the assistance of a rolling walker. Objective Physical Examination General Exam: Positive: Alert, Cooperative, No Acute Distress ENT Exam: Positive: Atraumatic, Mucous membr. moist/pink Neck Exam: Negative: JVD Chest Exam: Positive: Clear to auscultation, Normal air movement Heart Exam: Positive: Rate Normal, Normal S1, Normal S2 Abdomen Exam: Positive: Soft; Negative: Tenderness Extremity Exam: Negative: Tenderness, Swelling Neuro Exam: Positive: Normal Speech, Strength at 5/5 X4 ext, Normal Tone, Sensation Intact, Cranial Nerves 3-12 NL Psych Exam: Positive: Oriented x 3 Assessment /Plan Plan/VTE VTE Prophylaxis Ordered?: Yes Plan Sepsis 2/2 Streptococcal Meningitis CSF Sensitivity noted--patient on Rocephin, on Decadron x 3 days as per Neuro CRP markers downward trending ID on board--we will cont IV Abx as ordered We will cont to monitor the patient Acute CVA of Left Basal Ganglia, Temporal, and Parietal Lobes MRI of the Brain notable for punctate areas of acute infarction in the left basal ganglia, temporal, and parietal lobes. 2D ECHO noted for LV Diastolic Dysfunction, no atrial septum noted Carotid U/S with no acute findings Neurology input appreciated--Cont ASA, Statin Leptomeningeal Inflammation less likely Subarachnoid/Intraventicular Hemorrhage Neurology input appreciated--cont mgmt as ordered Diabetes Mellitus HgbA1c noted to be 11.7% We have started the patient on Levemir, and will cont to titrate dosing ISS for additional coverage HTN Cont Lisinopril DVT Prophylaxis SCDs/TEDs Disposition-pending continued clinical improvement, functional optimization with physical therapy. VS, I&O, 24H, Fishbone Vital Signs/I&O Vital Signs Date Time Temp Pulse Resp B/P (MAP) Pulse Ox O2 Delivery O2 Flow Rate FiO2 12/22/18 12:00 98.2 80 17 105/57 (73) 93 12/19/18 16:00 12/19/18 09:00 35 12/17/18 15:59 Ventilator I&O- Last 24 Hours up to 6 AM 12/22/18 06:00 Intake Total 950 ml Output Total 0 ml Balance 950 ml Laboratory Data 24H LABS Laboratory Tests 2 12/21/18 16:49: Bedside Glucose (Misc Panel) 203H 12/21/18 22:08: Bedside Glucose (Misc Panel) 169H 12/22/18 04:48: Immature Granulocyte % (Auto) 4.3H, White Blood Count 9.9, Red Blood Count 4.15, Hemoglobin 11.7L, Hematocrit 36.3, Mean Corpuscular Volume 87.5, Mean Corpuscular Hemoglobin 28.2, Mean Corpuscular Hemoglobin Concent 32.2, Red Cell Distribution Width 14.9H, Platelet Count 121L, Neutrophils (%) (Auto) 88.3H, Lymphocytes (%) (Auto) 5.2L, Monocytes (%) (Auto) 1.8, Eosinophils (%) (Auto) 0.1, Basophils (%) (Auto) 0.3, Neutrophils # (Auto) 8.8H, Lymphocytes # (Auto) 0.5L, Monocytes # (Auto) 0.2, Eosinophils # (Auto) 0.0, Basophils # (Auto) 0.0, Nucleated Red Blood Cells % (auto) 0.0, Anion Gap 8, Glomerular Filtration Rate > 60.0, Blood Urea Nitrogen 19H, Creatinine 0.71, Sodium Level 135L, Potassium Level 4.0, Chloride Level 103, Carbon Dioxide Level 24, Calcium Level 7.6L, Aspartate Amino Transf (AST/SGOT) 42H, Alanine Aminotransferase (ALT/SGPT) 42, Alkaline Phosphatase 97, Total Bilirubin 1.0, Total Protein 6.6, Albumin 2.2L, Magnesium Level 2.0, C-Reactive Protein, Quantitative 2.79H, Albumin/Globulin Ratio 0.50L 12/22/18 11:55: Bedside Glucose (Misc Panel) 380H CBC/BMP Laboratory Tests 12/22/18 04:48 Red Blood Count 4.15, Mean Corpuscular Volume 87.5, Mean Corpuscular Hemoglobin 28.2, Mean Corpuscular Hemoglobin Concent 32.2, Red Cell Distribution Width 14.9 H, Neutrophils (%) (Auto) 88.3 H, Lymphocytes (%) (Auto) 5.2 L, Monocytes (%) (Auto) 1.8, Eosinophils (%) (Auto) 0.1, Basophils (%) (Auto) 0.3, Neutrophils # (Auto) 8.8 H, Lymphocytes # (Auto) 0.5 L, Monocytes # (Auto) 0.2, Eosinophils # (Auto) 0.0, Basophils # (Auto) 0.0, Calcium Level 7.6 L, Aspartate Amino Transf (AST/SGOT) 42 H, Alanine Aminotransferase (ALT/SGPT) 42, Alkaline Phosphatase 97, Total Bilirubin 1.0, Total Protein 6.6, Albumin 2.2 L Microbiology Microbiology 12/15/18 Blood Culture - Final, Complete NO GROWTH AFTER 5 DAYS 12/15/18 - Final, Complete Streptococcus Pneumoniae 12/15/18 Gram Stain - Final, Complete 12/15/18 CSF Culture - Final, Complete 12/16/18 Gram Stain - Final, Complete 12/16/18 Sputum Culture - Final, Complete Streptococcus Pneumoniae Haemophilus Influenzae 12/15/18 Respiratory Virus Panel (PCR) (FERMIN) - Final, Complete RADHA REYNA MD Dec 22, 2018 15:40
[2018-12-23 04:00] VITALS: BP 122/58
[2018-12-23] MEDS: IPRATROPIUM 0.5MG/ALBUTEROL 2.5MG INH SOL UD 3ML (DUONEB)(J7620) NEB SCH ×6 (04:00→23:47)
[2018-12-23 05:42] LABS: BASO % 0.2 % (0.0-1.0); HEMATOCRIT 34.4 % (36.0-47.0); HEMOGLOBIN 11.4 g/dl (12.0-15.5); LYMPH # 0.4 10^3/uL (1.5-4.5); LYMPH % 4.8 % (24.0-44.0); MEAN CORPUSCULAR HEMOGLOBIN 28.6 pg (27.0-33.0); MEAN CORPUSCULAR HGB CONC 33.1 g/dl (32.0-36.5); MEAN CORPUSCULAR VOLUME 86.2 fl (80.0-96.0); MONO # 0.2 10^3/uL (0.0-0.8); NEUTROPHILS # 7.5 10^3/uL (1.8-7.7); NEUTROPHILS % 90.1 % (36.0-66.0); PLATELET COUNT, AUTOMATED 128 10^3/uL (150-450); RED BLOOD COUNT 3.99 10^6/uL (4.00-5.40); WHITE BLOOD COUNT 8.4 10^3/uL (4.0-10.0)
[2018-12-23 05:59] LABS: ALBUMIN 2.1 GM/DL (3.2-5.2); ALT/SGPT 42 U/L (12-78); BILIRUBIN,TOTAL 0.9 MG/DL (0.2-1.0); BLOOD UREA NITROGEN 17 MG/DL (7-18); C REACTIVE PROTEIN QUANTITATIV 1.56 MG/DL (0.00-0.30); CALCIUM LEVEL 7.4 MG/DL (8.5-10.1); CARBON DIOXIDE LEVEL 24 MEQ/L (21-32); CHLORIDE LEVEL 102 MEQ/L (98-107); CREATININE FOR GFR 0.68 MG/DL (0.55-1.30); GLOMERULAR FILTRATION RATE > 60.0 (>51); GLUCOSE, FASTING 387 MG/DL (70-100); MAGNESIUM LEVEL 1.9 MG/DL (1.8-2.4); POTASSIUM SERUM 3.8 MEQ/L (3.5-5.1); SODIUM LEVEL 133 MEQ/L (136-145); TOTAL PROTEIN 6.3 GM/DL (6.4-8.2)
[2018-12-23 08:00] VITALS: BP 142/64
[2018-12-23] MEDS: HumaLOG INSULIN (NovoLOG) PER UNIT SC SCH ×4 (08:46→22:04)
[2018-12-23] MEDS: NEUTRA-PHOS 1.5 GM PACKET PO SCH (08:47)
[2018-12-23] MEDS: LEVEMIR (INSULIN DETEMIR) 1 UNITS/0.01ML SC SCH ×2 (08:47→22:05)
[2018-12-23] MEDS: ASPIRIN 81 MG ENTERIC TAB PO SCH (08:47)
[2018-12-23] MEDS: PANTOPRAZOLE 40MG TAB (PROTONIX) PO SCH (08:47)
[2018-12-23] MEDS: ATORVASTATIN 20 MG TAB PO SCH (08:47)
[2018-12-23] MEDS: LISINOPRIL 10 MG TAB PO SCH (08:48)
[2018-12-23] MEDS: SLF 3 ML SYR IV SCH ×3 (08:48→22:05)
[2018-12-23] MEDS: dexameTHASONE 20 MG/5 ML VIAL (J1100) IV SCH ×2 (08:49→22:05)
[2018-12-23] MEDS: cefTRIAXone SOD 2 GM in D5W MINI-BAG PLUS 50 ML IV SCH ×2 (08:49→22:05)
[2018-12-23 12:00] VITALS: BP 128/65
[2018-12-23 16:00] VITALS: BP 141/69
--- NOTE | 2018-12-23 16:23 | IPNPDOC ---
Subjective Date Seen The patient was seen on 12/23/18. Subjective Chief Complaint/HPI Patient seen and examined at the bedside. She tells me that she is feeling well, and notes that she was able to walk to the bathroom without any assistive devices this morning. Patient's blood sugars have been elevated, likely 2/2 decadron use, will cont to adjust dosing as tolerated. Objective Physical Examination General Exam: Positive: Alert, Cooperative, No Acute Distress ENT Exam: Positive: Atraumatic, Mucous membr. moist/pink Neck Exam: Negative: JVD Chest Exam: Positive: Clear to auscultation, Normal air movement Heart Exam: Positive: Rate Normal, Normal S1, Normal S2 Abdomen Exam: Positive: Soft; Negative: Tenderness Extremity Exam: Negative: Tenderness, Swelling Neuro Exam: Positive: Normal Speech, Strength at 5/5 X4 ext, Normal Tone, Sensation Intact, Cranial Nerves 3-12 NL Psych Exam: Positive: Oriented x 3 Assessment /Plan Plan/VTE VTE Prophylaxis Ordered?: Yes Plan Sepsis 2/2 Streptococcal Meningitis CSF Sensitivity noted--patient on Rocephin, on Decadron x 3 days as per Neuro CRP markers downward trending ID on board--we will cont IV Abx as ordered (Rocephin Day 06/04) We will cont to monitor the patient Acute CVA of Left Basal Ganglia, Temporal, and Parietal Lobes MRI of the Brain notable for punctate areas of acute infarction in the left basal ganglia, temporal, and parietal lobes. 2D ECHO noted for LV Diastolic Dysfunction, no atrial septum noted Carotid U/S with no acute findings Neurology input appreciated--Cont ASA, Statin Leptomeningeal Inflammation less likely Subarachnoid/Intraventicular Hemorrhage Neurology input appreciated--cont mgmt as ordered Diabetes Mellitus HgbA1c noted to be 11.7% We have started the patient on Levemir, and will cont to titrate dosing ISS for additional coverage HTN Cont Lisinopril DVT Prophylaxis SCDs/TEDs Disposition-pending continued clinical improvement, completion of IV Abx therapy. PFS on board and will help us in securing the patient's medications/diabetic supplies upon discharge. VS, I&O, 24H, Fishbone Vital Signs/I&O Vital Signs Date Time Temp Pulse Resp B/P (MAP) Pulse Ox O2 Delivery O2 Flow Rate FiO2 12/23/18 16:00 98.0 81 18 141/69 (93) 93 3/31/19 16:00 12/19/18 09:00 35 12/17/18 15:59 Ventilator I&O- Last 24 Hours up to 6 AM 12/23/18 06:00 Intake Total 1540 ml Output Total 400 ml Balance 1140 ml Laboratory Data 24H LABS Laboratory Tests 2 12/22/18 16:58: Bedside Glucose (Misc Panel) 410H 12/22/18 20:49: Bedside Glucose (Misc Panel) 342H 12/23/18 05:15: Immature Granulocyte % (Auto) 2.9, White Blood Count 8.4, Red Blood Count 3.99L, Hemoglobin 11.4L, Hematocrit 34.4L, Mean Corpuscular Volume 86.2, Mean Corpuscular Hemoglobin 28.6, Mean Corpuscular Hemoglobin Concent 33.1, Red Cell Distribution Width 14.6H, Platelet Count 128L, Neutrophils (%) (Auto) 90.1H, Lymphocytes (%) (Auto) 4.8L, Monocytes (%) (Auto) 2.0, Eosinophils (%) (Auto) 0.0, Basophils (%) (Auto) 0.2, Neutrophils # (Auto) 7.5, Lymphocytes # (Auto) 0.4L, Monocytes # (Auto) 0.2, Eosinophils # (Auto) 0.0, Basophils # (Auto) 0.0, Nucleated Red Blood Cells % (auto) 0.0, Anion Gap 7L, Glomerular Filtration Rate > 60.0, Blood Urea Nitrogen 17, Creatinine 0.68, Sodium Level 133L, Potassium Level 3.8, Chloride Level 102, Carbon Dioxide Level 24, Calcium Level 7.4L, Aspartate Amino Transf (AST/SGOT) 28, Alanine Aminotransferase (ALT/SGPT) 42, Alkaline Phosphatase 99, Total Bilirubin 0.9, Total Protein 6.3L, Albumin 2.1L, Magnesium Level 1.9, C-Reactive Protein, Quantitative 1.56H, Albumin/Globulin Ratio 0.50L 12/23/18 11:53: Bedside Glucose (Misc Panel) 378H CBC/BMP Laboratory Tests 12/23/18 05:15 Red Blood Count 3.99 L, Mean Corpuscular Volume 86.2, Mean Corpuscular Hemoglobin 28.6, Mean Corpuscular Hemoglobin Concent 33.1, Red Cell Distribution Width 14.6 H, Neutrophils (%) (Auto) 90.1 H, Lymphocytes (%) (Auto) 4.8 L, Monocytes (%) (Auto) 2.0, Eosinophils (%) (Auto) 0.0, Basophils (%) (Auto) 0.2, Neutrophils # (Auto) 7.5, Lymphocytes # (Auto) 0.4 L, Monocytes # (Auto) 0.2, Eosinophils # (Auto) 0.0, Basophils # (Auto) 0.0, Calcium Level 7.4 L, Aspartate Amino Transf (AST/SGOT) 28, Alanine Aminotransferase (ALT/SGPT) 42, Alkaline Phosphatase 99, Total Bilirubin 0.9, Total Protein 6.3 L, Albumin 2.1 L Microbiology Microbiology 12/15/18 Blood Culture - Final, Complete NO GROWTH AFTER 5 DAYS 12/15/18 - Final, Complete Streptococcus Pneumoniae 12/15/18 Gram Stain - Final, Complete 12/15/18 CSF Culture - Final, Complete 12/16/18 Gram Stain - Final, Complete 12/16/18 Sputum Culture - Final, Complete Streptococcus Pneumoniae Haemophilus Influenzae 12/15/18 Respiratory Virus Panel (PCR) (FERMIN) - Final, Complete RADHA REYNA MD Dec 23, 2018 16:23
[2018-12-23] MEDS ORDERED: LEVEMIR (INSULIN DETEMIR) 1 UNITS/0.01ML SC ONE (18:15)
[2018-12-23 19:08] VITALS: BP 173/81
[2018-12-23] MEDS: diphenhydrAMINE 25 MG CAP PO PRN (22:56)
[2018-12-24] VITALS (7 sets, daily range): BP systolic 121–138; BP diastolic 58–65
[2018-12-24] MEDS: IPRATROPIUM 0.5MG/ALBUTEROL 2.5MG INH SOL UD 3ML (DUONEB)(J7620) NEB SCH ×6 (04:00→23:57)
[2018-12-24] MEDS: SLF 3 ML SYR IV SCH ×3 (05:03→20:51)
[2018-12-24 05:42] LABS: BASO % 0.2 % (0.0-1.0); HEMATOCRIT 34.6 % (36.0-47.0); HEMOGLOBIN 11.5 g/dl (12.0-15.5); LYMPH # 0.5 10^3/uL (1.5-4.5); LYMPH % 4.3 % (24.0-44.0); MEAN CORPUSCULAR HEMOGLOBIN 28.2 pg (27.0-33.0); MEAN CORPUSCULAR HGB CONC 33.2 g/dl (32.0-36.5); MEAN CORPUSCULAR VOLUME 84.8 fl (80.0-96.0); MONO # 0.3 10^3/uL (0.0-0.8); MONO % 2.8 % (0.0-5.0); NEUTROPHILS # 9.2 10^3/uL (1.8-7.7); NEUTROPHILS % 88.7 % (36.0-66.0); PLATELET COUNT, AUTOMATED 147 10^3/uL (150-450); RED BLOOD COUNT 4.08 10^6/uL (4.00-5.40); WHITE BLOOD COUNT 10.4 10^3/uL (4.0-10.0)
[2018-12-24 06:01] LABS: ALBUMIN 2.3 GM/DL (3.2-5.2); ALT/SGPT 43 U/L (12-78); BILIRUBIN,TOTAL 0.8 MG/DL (0.2-1.0); BLOOD UREA NITROGEN 17 MG/DL (7-18); CALCIUM LEVEL 7.7 MG/DL (8.5-10.1); CARBON DIOXIDE LEVEL 25 MEQ/L (21-32); CHLORIDE LEVEL 104 MEQ/L (98-107); CREATININE FOR GFR 0.66 MG/DL (0.55-1.30); GLOMERULAR FILTRATION RATE > 60.0 (>51); GLUCOSE, FASTING 270 MG/DL (70-100); MAGNESIUM LEVEL 2.1 MG/DL (1.8-2.4); POTASSIUM SERUM 3.8 MEQ/L (3.5-5.1); SODIUM LEVEL 135 MEQ/L (136-145); TOTAL PROTEIN 6.7 GM/DL (6.4-8.2)
--- NOTE | 2018-12-24 08:40 | NUR ---
Pt cognitive function is wnl, pt and family report pt has been functioning at baseline mentation for the past several days. Cognitive tx not recommended at this time. Please contact LARRY OPERATOR w/ any questions or concerns. Addendum: 12/24/18 at [address] [facility] Amended: Links added.
[2018-12-24] MEDS: LEVEMIR (INSULIN DETEMIR) 1 UNITS/0.01ML SC SCH ×2 (08:47→20:51)
[2018-12-24] MEDS: cefTRIAXone SOD 2 GM in D5W MINI-BAG PLUS 50 ML IV SCH ×2 (08:48→20:51)
[2018-12-24] MEDS: ASPIRIN 81 MG ENTERIC TAB PO SCH (08:48)
[2018-12-24] MEDS: PANTOPRAZOLE 40MG TAB (PROTONIX) PO SCH (08:48)
[2018-12-24] MEDS: dexameTHASONE 20 MG/5 ML VIAL (J1100) IV SCH (08:48)
[2018-12-24] MEDS: LISINOPRIL 10 MG TAB PO SCH (08:48)
[2018-12-24] MEDS: NEUTRA-PHOS 1.5 GM PACKET PO SCH (08:48)
[2018-12-24] MEDS: HumaLOG INSULIN (NovoLOG) PER UNIT SC SCH ×4 (08:49→20:51)
[2018-12-24] MEDS: ATORVASTATIN 20 MG TAB PO SCH (08:49)
--- NOTE | 2018-12-24 12:01 | IPNPDOC ---
Subjective Date Seen The patient was seen on 12/24/18. Subjective Chief Complaint/HPI bacterial meningitis General: Denies: Chills ENT: Reports: Other Symptoms (no neck pain/stiffness); Denies: Head Aches Pulmonary: Reports: Cough; Denies: Dyspnea Cardiovascular: Denies: Chest Pain, Palpitations Gastrointestinal: Denies: Nausea, Vomiting Neurological: Denies: Weakness Psych: Reports: Mood Normal Objective Physical Examination General Exam: Positive: Alert, Cooperative, No Acute Distress ENT Exam: Positive: Atraumatic, Mucous membr. moist/pink Neck Exam: Negative: JVD Chest Exam: Positive: Clear to auscultation, Normal air movement Heart Exam: Positive: Rate Normal, Normal S1, Normal S2 Abdomen Exam: Positive: Normal bowel sounds, Soft; Negative: Tenderness Extremity Exam: Negative: Tenderness, Swelling Neuro Exam: Positive: Normal Speech, Strength at 5/5 X4 ext, Normal Tone, Sensation Intact, Cranial Nerves 3-12 NL Psych Exam: Positive: Mood NL, Oriented x 3 Assessment /Plan Assessment IMPRESSION & PLAN: 1. Streptococcal pneumoniae, bacterial meningitis on IV Rocephin -patient appears much better today, is sitting on her bed conversing with her daughter -continues day #9, she will need a total of 14 days of IV antibiotic therapy -Strep pneumonia is sensitive to penicillin -Immune workup including HIV, hepatitis C and antibody levels. HIV, hepatitis C were negative - IgG level was 1180 which is quite elevated and IgA 1120 -The patient will need Prevnar followed by Pneumovax. - She will need to discontinue smoking. -s/p IV vancomycin and Decadron -s/p extubation -she would like to follow with a primary care doctor the [facility] in [place] 2. MRI demonstrating multi infarcts -likely secondary to meningitis -Neurology has been consulted, she continues on aspirin and has again received steroids. -She has no focal deficits on exam, no residual effects 2. Hypertension -she is stable, she continues on Lisinopril 10 mg QD 3. New diagnosis of diabetes with HbA1c of 11 - Sugars have been elevated likely secondary to additional steroid therapy, once this is finished, expect improvement in BS again Plan/VTE VTE Prophylaxis Ordered?: Yes VS, I&O, 24H, Fishbone Vital Signs/I&O Vital Signs Date Time Temp Pulse Resp B/P (MAP) Pulse Ox O2 Delivery O2 Flow Rate FiO2 12/24/18 08:00 98.3 77 18 132/65 (87) 95 12/19/18 16:00 12/19/18 09:00 35 I&O- Last 24 Hours up to 6 AM 12/24/18 06:00 Intake Total 690 ml Balance 690 ml Laboratory Data 24H LABS Laboratory Tests 2 12/23/18 11:53: Bedside Glucose (Misc Panel) 378H 12/23/18 17:52: Bedside Glucose (Misc Panel) 321H 12/23/18 21:42: Bedside Glucose (Misc Panel) 350H 12/24/18 05:28: Immature Granulocyte % (Auto) 4.0H, White Blood Count 10.4H, Red Blood Count 4.08, Hemoglobin 11.5L, Hematocrit 34.6L, Mean Corpuscular Volume 84.8, Mean Corpuscular Hemoglobin 28.2, Mean Corpuscular Hemoglobin Concent 33.2, Red Cell Distribution Width 14.5, Platelet Count 147L, Neutrophils (%) (Auto) 88.7H, Lymphocytes (%) (Auto) 4.3L, Monocytes (%) (Auto) 2.8, Eosinophils (%) (Auto) 0.0, Basophils (%) (Auto) 0.2, Neutrophils # (Auto) 9.2H, Lymphocytes # (Auto) 0.5L, Monocytes # (Auto) 0.3, Eosinophils # (Auto) 0.0, Basophils # (Auto) 0.0, Nucleated Red Blood Cells % (auto) 0.0, Anion Gap 6L, Glomerular Filtration Rate > 60.0, Blood Urea Nitrogen 17, Creatinine 0.66, Sodium Level 135L, Potassium Level 3.8, Chloride Level 104, Carbon Dioxide Level 25, Calcium Level 7.7L, Aspartate Amino Transf (AST/SGOT) 30, Alanine Aminotransferase (ALT/SGPT) 43, Alkaline Phosphatase 105, Total Bilirubin 0.8, Total Protein 6.7, Albumin 2.3L, Magnesium Level 2.1, C-Reactive Protein, Quantitative 0.70H, Albumin/Globulin Ratio 0.52L CBC/BMP Laboratory Tests 12/24/18 05:28 Red Blood Count 4.08, Mean Corpuscular Volume 84.8, Mean Corpuscular Hemoglobin 28.2, Mean Corpuscular Hemoglobin Concent 33.2, Red Cell Distribution Width 14.5, Neutrophils (%) (Auto) 88.7 H, Lymphocytes (%) (Auto) 4.3 L, Monocytes (%) (Auto) 2.8, Eosinophils (%) (Auto) 0.0, Basophils (%) (Auto) 0.2, Neutrophils # (Auto) 9.2 H, Lymphocytes # (Auto) 0.5 L, Monocytes # (Auto) 0.3, Eosinophils # (Auto) 0.0, Basophils # (Auto) 0.0, Calcium Level 7.7 L, Aspartate Amino Transf (AST/SGOT) 30, Alanine Aminotransferase (ALT/SGPT) 43, Alkaline Phosphatase 105, Total Bilirubin 0.8, Total Protein 6.7, Albumin 2.3 L Microbiology Microbiology 12/15/18 Blood Culture - Final, Complete NO GROWTH AFTER 5 DAYS 12/15/18 - Final, Complete Streptococcus Pneumoniae 12/15/18 Gram Stain - Final, Complete 12/15/18 CSF Culture - Final, Complete 12/16/18 Gram Stain - Final, Complete 12/16/18 Sputum Culture - Final, Complete Streptococcus Pneumoniae Haemophilus Influenzae 12/15/18 Respiratory Virus Panel (PCR) (FERMIN) - Final, Complete GME ATTESTATION GME ATTESTATION My faculty preceptor for this patient encounter was physically present during the encounter and was fully available. All aspects of the patient interview, examination, medical decision making process, and medical care plan development were reviewed and approved by the faculty preceptor. The faculty preceptor is aware and concurs with the plan as stated in the body of this note and will attest to such by his/her cosignature. LACIE DELGADO DO Dec 24, 2018 12:01
--- NOTE | 2018-12-24 12:04 | IPNPDOC ---
Subjective Date Seen The patient was seen on 12/24/18. Subjective Chief Complaint/HPI Patient seen participating with PT this morning. No acute overnight events noted. Objective Physical Examination General Exam: Positive: Alert, Cooperative, No Acute Distress ENT Exam: Positive: Atraumatic, Mucous membr. moist/pink Neck Exam: Negative: JVD Chest Exam: Positive: Clear to auscultation, Normal air movement Heart Exam: Positive: Rate Normal, Normal S1, Normal S2 Abdomen Exam: Positive: Normal bowel sounds, Soft; Negative: Tenderness Extremity Exam: Negative: Tenderness, Swelling Neuro Exam: Positive: Normal Speech Psych Exam: Positive: Mood NL, Oriented x 3 Assessment /Plan Plan/VTE VTE Prophylaxis Ordered?: Yes Plan Sepsis 2/2 Streptococcal Meningitis CSF Sensitivity noted--patient on Rocephin, on Decadron to be transitioned to PO prednisone as per Neuro CRP markers downward trending ID on board--we will cont IV Abx as ordered (Rocephin Day 07/04) We will cont to monitor the patient Acute CVA of Left Basal Ganglia, Temporal, and Parietal Lobes MRI of the Brain notable for punctate areas of acute infarction in the left bas al ganglia, temporal, and parietal lobes. 2D ECHO noted for LV Diastolic Dysfunction, no atrial septum noted Carotid U/S with no acute findings Neurology input appreciated--Cont ASA, Statin Leptomeningeal Inflammation less likely Subarachnoid/Intraventicular Hemorrhage Neurology input appreciated--cont mgmt as ordered Diabetes Mellitus HgbA1c noted to be 11.7% We have started the patient on Levemir, and will cont to titrate dosing ISS for additional coverage HTN Cont Lisinopril DVT Prophylaxis SCDs/TEDs Disposition-pending continued clinical improvement, completion of IV Abx therapy. PFS on board and will help us in securing the patient's medications/diabetic supplies upon discharge. VS, I&O, 24H, Fishbone Vital Signs/I&O Vital Signs Date Time Temp Pulse Resp B/P (MAP) Pulse Ox O2 Delivery O2 Flow Rate FiO2 12/24/18 08:00 98.3 77 18 132/65 (87) 95 12/19/18 16:00 12/19/18 09:00 35 I&O- Last 24 Hours up to 6 AM 12/24/18 06:00 Intake Total 690 ml Balance 690 ml Laboratory Data 24H LABS Laboratory Tests 2 12/23/18 17:52: Bedside Glucose (Misc Panel) 321H 12/23/18 21:42: Bedside Glucose (Misc Panel) 350H 12/24/18 05:28: Immature Granulocyte % (Auto) 4.0H, White Blood Count 10.4H, Red Blood Count 4.08, Hemoglobin 11.5L, Hematocrit 34.6L, Mean Corpuscular Volume 84.8, Mean Corpuscular Hemoglobin 28.2, Mean Corpuscular Hemoglobin Concent 33.2, Red Cell Distribution Width 14.5, Platelet Count 147L, Neutrophils (%) (Auto) 88.7H, Lymphocytes (%) (Auto) 4.3L, Monocytes (%) (Auto) 2.8, Eosinophils (%) (Auto) 0.0, Basophils (%) (Auto) 0.2, Neutrophils # (Auto) 9.2H, Lymphocytes # (Auto) 0.5L, Monocytes # (Auto) 0.3, Eosinophils # (Auto) 0.0, Basophils # (Auto) 0.0, Nucleated Red Blood Cells % (auto) 0.0, Anion Gap 6L, Glomerular Filtration Rate > 60.0, Blood Urea Nitrogen 17, Creatinine 0.66, Sodium Level 135L, Potassium Level 3.8, Chloride Level 104, Carbon Dioxide Level 25, Calcium Level 7.7L, Aspartate Amino Transf (AST/SGOT) 30, Alanine Aminotransferase (ALT/SGPT) 43, Alkaline Phosphatase 105, Total Bilirubin 0.8, Total Protein 6.7, Albumin 2.3L, Magnesium Level 2.1, C-Reactive Protein, Quantitative 0.70H, Albumin/Globulin Ratio 0.52L CBC/BMP Laboratory Tests 12/24/18 05:28 Red Blood Count 4.08, Mean Corpuscular Volume 84.8, Mean Corpuscular Hemoglobin 28.2, Mean Corpuscular Hemoglobin Concent 33.2, Red Cell Distribution Width 14.5 , Neutrophils (%) (Auto) 88.7 H, Lymphocytes (%) (Auto) 4.3 L, Monocytes (%) (Auto) 2.8, Eosinophils (%) (Auto) 0.0, Basophils (%) (Auto) 0.2, Neutrophils # (Auto) 9.2 H, Lymphocytes # (Auto) 0.5 L, Monocytes # (Auto) 0.3, Eosinophils # (Auto) 0.0, Basophils # (Auto) 0.0, Calcium Level 7.7 L, Aspartate Amino Transf (AST/SGOT) 30, Alanine Aminotransferase (ALT/SGPT) 43, Alkaline Phosphatase 105, Total Bilirubin 0.8, Total Protein 6.7, Albumin 2.3 L Microbiology Microbiology 12/15/18 Blood Culture - Final, Complete NO GROWTH AFTER 5 DAYS 12/15/18 - Final, Complete Streptococcus Pneumoniae 12/15/18 Gram Stain - Final, Complete 12/15/18 CSF Culture - Final, Complete 12/16/18 Gram Stain - Final, Complete 12/16/18 Sputum Culture - Final, Complete Streptococcus Pneumoniae Haemophilus Influenzae 12/15/18 Respiratory Virus Panel (PCR) (FERMIN) - Final, Complete RADHA REYNA MD Dec 24, 2018 12:04
[2018-12-25] MEDS: IPRATROPIUM 0.5MG/ALBUTEROL 2.5MG INH SOL UD 3ML (DUONEB)(J7620) NEB SCH ×5 (03:21→20:00)
[2018-12-25 04:00] VITALS: BP 131/72
[2018-12-25] MEDS: SLF 3 ML SYR IV SCH ×3 (05:09→21:22)
[2018-12-25 05:26] LABS: BASO % 0.1 % (0.0-1.0); HEMATOCRIT 32.8 % (36.0-47.0); HEMOGLOBIN 11.1 g/dl (12.0-15.5); LYMPH # 0.5 10^3/uL (1.5-4.5); LYMPH % 5.3 % (24.0-44.0); MEAN CORPUSCULAR HEMOGLOBIN 28.6 pg (27.0-33.0); MEAN CORPUSCULAR HGB CONC 33.8 g/dl (32.0-36.5); MEAN CORPUSCULAR VOLUME 84.5 fl (80.0-96.0); MONO # 0.5 10^3/uL (0.0-0.8); MONO % 4.6 % (0.0-5.0); NEUTROPHILS # 8.8 10^3/uL (1.8-7.7); NEUTROPHILS % 87.6 % (36.0-66.0); PLATELET COUNT, AUTOMATED 153 10^3/uL (150-450); RED BLOOD COUNT 3.88 10^6/uL (4.00-5.40); WHITE BLOOD COUNT 10.1 10^3/uL (4.0-10.0)
[2018-12-25 05:50] LABS: ALBUMIN 2.1 GM/DL (3.2-5.2); ALT/SGPT 50 U/L (12-78); BILIRUBIN,TOTAL 0.7 MG/DL (0.2-1.0); BLOOD UREA NITROGEN 16 MG/DL (7-18); C REACTIVE PROTEIN QUANTITATIV 0.32 MG/DL (0.00-0.30); CALCIUM LEVEL 7.7 MG/DL (8.5-10.1); CARBON DIOXIDE LEVEL 25 MEQ/L (21-32); CHLORIDE LEVEL 106 MEQ/L (98-107); CREATININE FOR GFR 0.59 MG/DL (0.55-1.30); GLOMERULAR FILTRATION RATE > 60.0 (>51); GLUCOSE, FASTING 224 MG/DL (70-100); MAGNESIUM LEVEL 2.1 MG/DL (1.8-2.4); POTASSIUM SERUM 3.5 MEQ/L (3.5-5.1); SODIUM LEVEL 138 MEQ/L (136-145); TOTAL PROTEIN 5.9 GM/DL (6.4-8.2)
[2018-12-25] MEDS: cefTRIAXone SOD 2 GM in D5W MINI-BAG PLUS 50 ML IV SCH ×2 (08:15→21:22)
[2018-12-25] MEDS: HumaLOG INSULIN (NovoLOG) PER UNIT SC SCH ×4 (08:16→21:21)
[2018-12-25] MEDS: LEVEMIR (INSULIN DETEMIR) 1 UNITS/0.01ML SC SCH ×2 (08:16→21:21)
[2018-12-25] MEDS: ASPIRIN 81 MG ENTERIC TAB PO SCH (08:17)
[2018-12-25] MEDS: predniSONE 10 MG TAB PO SCH (08:17)
[2018-12-25] MEDS: PANTOPRAZOLE 40MG TAB (PROTONIX) PO SCH (08:17)
[2018-12-25] MEDS: ATORVASTATIN 20 MG TAB PO SCH (08:18)
[2018-12-25] MEDS: NEUTRA-PHOS 1.5 GM PACKET PO SCH (08:18)
[2018-12-25 08:24] VITALS: BP 139/70
[2018-12-25] MEDS: LISINOPRIL 10 MG TAB PO SCH (08:25)
[2018-12-25 12:00] VITALS: BP 112/55
[2018-12-25 16:00] VITALS: BP 112/57
[2018-12-25] MEDS ORDERED: ATOR1TAB21 PO (16:15)
[2018-12-25] MEDS ORDERED: NICO14DI31 TOP (16:15)
[2018-12-25] MEDS ORDERED: GLUC1TES2 XX (16:15)
[2018-12-25] MEDS ORDERED: ASPI81TAEC PO (16:15)
[2018-12-25] MEDS ORDERED: BASA100I SC (16:15)
[2018-12-25] MEDS ORDERED: LISI10TA4 PO (16:15)
[2018-12-25] MEDS ORDERED: LANC30MI XX (16:15)
[2018-12-25] MEDS ORDERED: ALCOPAD17 TOP (16:15)
[2018-12-25] MEDS ORDERED: PEN1MIS21 SC (16:15)
--- NOTE | 2018-12-25 16:17 | IPNPDOC ---
Subjective Date Seen The patient was seen on 12/25/18. Subjective Chief Complaint/HPI Patient seen and examined at bedside. No acute overnight events noted. Objective Physical Examination General Exam: Positive: Alert, Cooperative, No Acute Distress ENT Exam: Positive: Atraumatic, Mucous membr. moist/pink Neck Exam: Negative: JVD Chest Exam: Positive: Clear to auscultation, Normal air movement Heart Exam: Positive: Rate Normal, Normal S1, Normal S2 Abdomen Exam: Positive: Normal bowel sounds, Soft; Negative: Tenderness Extremity Exam: Negative: Tenderness, Swelling Neuro Exam: Positive: Normal Speech Psych Exam: Positive: Mood NL, Oriented x 3 Assessment /Plan Plan/VTE VTE Prophylaxis Ordered?: Yes Plan Sepsis 2/2 Streptococcal Meningitis CSF Sensitivity noted--patient on Rocephin, on Decadron to be transitioned to PO prednisone as per Neuro CRP markers downward trending ID on board--we will cont IV Abx as ordered (Rocephin Day 08/04) We will cont to monitor the patient Acute CVA of Left Basal Ganglia, Temporal, and Parietal Lobes MRI of the Brain notable for punctate areas of acute infarction in the left basal ganglia, temporal, and parietal lobes. 2D ECHO noted for LV Diastolic Dysfunction, no atrial septum noted Carotid U/S with no acute findings Neurology input appreciated--Cont ASA, Statin Leptomeningeal Inflammation less likely Subarachnoid/Intraventicular Hemorrhage Neurology input appreciated--cont mgmt as ordered Diabetes Mellitus HgbA1c noted to be 11.7% We have started the patient on Levemir, and will cont to titrate dosing ISS for additional coverage HTN Cont Lisinopril DVT Prophylaxis SCDs/TEDs Disposition-pending continued clinical improvement, completion of IV Abx therapy. PFS on board and will help us in securing the patient's medications/diabetic supplies upon discharge. VS, I&O, 24H, Fishbone Vital Signs/I&O Vital Signs Date Time Temp Pulse Resp B/P (MAP) Pulse Ox O2 Delivery O2 Flow Rate FiO2 12/25/18 08:25 139/70 12/25/18 08:24 97.4 72 18 97 12/19/18 16:00 12/19/18 09:00 35 I&O- Last 24 Hours up to 6 AM 12/25/18 06:00 Intake Total 1360 ml Output Total 0 ml Balance 1360 ml Laboratory Data 24H LABS Laboratory Tests 2 12/24/18 17:10: Bedside Glucose (Misc Panel) 362H 12/24/18 20:33: Bedside Glucose (Misc Panel) 330H 12/25/18 05:13: Immature Granulocyte % (Auto) 2.4, White Blood Count 10.1H, Red Blood Count 3.88L, Hemoglobin 11.1L, Hematocrit 32.8L, Mean Corpuscular Volume 84.5, Mean Corpuscular Hemoglobin 28.6, Mean Corpuscular Hemoglobin Concent 33.8, Red Cell Distribution Width 14.6H, Platelet Count 153, Neutrophils (%) (Auto) 87.6H, Lymphocytes (%) (Auto) 5.3L, Monocytes (%) (Auto) 4.6, Eosinophils (%) (Auto) 0.0, Basophils (%) (Auto) 0.1, Neutrophils # (Auto) 8.8H, Lymphocytes # (Auto) 0.5L, Monocytes # (Auto) 0.5, Eosinophils # (Auto) 0.0, Basophils # (Auto) 0.0, Nucleated Red Blood Cells % (auto) 0.0, Anion Gap 7L, Glomerular Filtration Rate > 60.0, Blood Urea Nitrogen 16, Creatinine 0.59, Sodium Level 138, Potassium Level 3.5, Chloride Level 106, Carbon Dioxide Level 25, Calcium Level 7.7L, Aspartate Amino Transf (AST/SGOT) 33, Alanine Aminotransferase (ALT/SGPT) 50, Alkaline Phosphatase 96, Total Bilirubin 0.7, Total Protein 5.9L, Albumin 2.1L, Magnesium Level 2.1, C-Reactive Protein, Quantitative 0.32H, Albumin/Globulin Ratio 0.55L 12/25/18 11:39: Bedside Glucose (Misc Panel) 250H CBC/BMP Laboratory Tests 12/25/18 05:13 Red Blood Count 3.88 L, Mean Corpuscular Volume 84.5, Mean Corpuscular Hemoglobin 28.6, Mean Corpuscular Hemoglobin Concent 33.8, Red Cell Distribution Width 14.6 H, Neutrophils (%) (Auto) 87.6 H, Lymphocytes (%) (Auto) 5.3 L, Monocytes (%) (Auto) 4.6, Eosinophils (%) (Auto) 0.0, Basophils (%) (Auto) 0.1, Neutrophils # (Auto) 8.8 H, Lymphocytes # (Auto) 0.5 L, Monocytes # (Auto) 0.5, Eosinophils # (Auto) 0.0, Basophils # (Auto) 0.0, Calcium Level 7.7 L, Aspartate Amino Transf (AST/SGOT) 33, Alanine Aminotransferase (ALT/SGPT) 50, Alkaline Phosphatase 96, Total Bilirubin 0.7, Total Protein 5.9 L, Albumin 2.1 L Microbiology Microbiology 12/15/18 Blood Culture - Final, Complete NO GROWTH AFTER 5 DAYS 12/15/18 - Final, Complete Streptococcus Pneumoniae 12/15/18 Gram Stain - Final, Complete 12/15/18 CSF Culture - Final, Complete 12/16/18 Gram Stain - Final, Complete 12/16/18 Sputum Culture - Final, Complete Streptococcus Pneumoniae Haemophilus Influenzae 12/15/18 Respiratory Virus Panel (PCR) (FERMIN) - Final, Complete RADHA REYNA MD Dec 25, 2018 16:17
[2018-12-25 20:00] VITALS: BP 127/58
[2018-12-25 23:59] VITALS: BP 122/61
[2018-12-26 04:00] VITALS: BP 122/57
[2018-12-26] MEDS: IPRATROPIUM 0.5MG/ALBUTEROL 2.5MG INH SOL UD 3ML (DUONEB)(J7620) NEB SCH ×6 (04:00→20:00)
[2018-12-26] MEDS: SLF 3 ML SYR IV SCH ×3 (05:15→22:00)
[2018-12-26] MEDS: HumaLOG INSULIN (NovoLOG) PER UNIT SC SCH ×4 (07:30→20:34)
[2018-12-26 08:00] VITALS: BP 126/72
[2018-12-26] MEDS: cefTRIAXone SOD 2 GM in D5W MINI-BAG PLUS 50 ML IV SCH ×2 (08:28→20:34)
[2018-12-26] MEDS: ATORVASTATIN 20 MG TAB PO SCH (08:29)
[2018-12-26] MEDS: LEVEMIR (INSULIN DETEMIR) 1 UNITS/0.01ML SC SCH ×2 (08:29→20:35)
[2018-12-26] MEDS: PANTOPRAZOLE 40MG TAB (PROTONIX) PO SCH (08:29)
[2018-12-26] MEDS: ASPIRIN 81 MG ENTERIC TAB PO SCH (08:29)
[2018-12-26] MEDS: predniSONE 10 MG TAB PO SCH (08:29)
[2018-12-26] MEDS: NEUTRA-PHOS 1.5 GM PACKET PO SCH (08:29)
[2018-12-26] MEDS: LISINOPRIL 10 MG TAB PO SCH (08:31)
[2018-12-26 12:00] VITALS: BP 110/68
--- NOTE | 2018-12-26 15:59 | IPNPDOC ---
Subjective Date Seen The patient was seen on 12/26/18. Subjective Chief Complaint/HPI Patient seen and examined at the bedside. No acute overnight events noted. Objective Physical Examination General Exam: Positive: Alert, Cooperative, No Acute Distress ENT Exam: Positive: Atraumatic, Mucous membr. moist/pink Neck Exam: Negative: JVD Chest Exam: Positive: Clear to auscultation, Normal air movement Heart Exam: Positive: Rate Normal, Normal S1, Normal S2 Abdomen Exam: Positive: Normal bowel sounds, Soft; Negative: Tenderness Extremity Exam: Negative: Tenderness, Swelling Neuro Exam: Positive: Normal Speech Psych Exam: Positive: Mood NL, Oriented x 3 Assessment /Plan Plan/VTE VTE Prophylaxis Ordered?: Yes Plan Sepsis 2/2 Streptococcal Meningitis CSF Sensitivity noted--patient on Rocephin, on Decadron to be transitioned to PO prednisone as per Neuro CRP markers downward trending ID on board--we will cont IV Abx as ordered (Rocephin Day 09/03) We will cont to monitor the patient Acute CVA of Left Basal Ganglia, Temporal, and Parietal Lobes MRI of the Brain notable for punctate areas of acute infarction in the left basal ganglia, temporal, and parietal lobes. 2D ECHO noted for LV Diastolic Dysfunction, no atrial septum noted Carotid U/S with no acute findings Neurology input appreciated--Cont ASA, Statin Leptomeningeal Inflammation less likely Subarachnoid/Intraventicular Hemorrhage Neurology input appreciated--cont mgmt as ordered Diabetes Mellitus HgbA1c noted to be 11.7% We have started the patient on Levemir, and will cont to titrate dosing ISS for additional coverage HTN Cont Lisinopril DVT Prophylaxis SCDs/TEDs Disposition-pending continued clinical improvement, completion of IV Abx therapy. PFS on board and will help us in securing the patient's medications/diabetic supplies upon discharge. VS, I&O, 24H, Fishbone Vital Signs/I&O Vital Signs Date Time Temp Pulse Resp B/P (MAP) Pulse Ox O2 Delivery O2 Flow Rate FiO2 12/26/18 08:31 126/72 12/26/18 08:00 97.8 77 20 91 I&O- Last 24 Hours up to 6 AM 12/26/18 06:00 Intake Total 1130 ml Output Total 0 ml Balance 1130 ml Laboratory Data 24H LABS Laboratory Tests 2 12/25/18 16:32: Bedside Glucose (Misc Panel) 318H 4/6/19 20:53: Bedside Glucose (Misc Panel) 288H 12/26/18 08:19: Bedside Glucose (Misc Panel) 99 12/26/18 12:06: Bedside Glucose (Misc Panel) 253H Microbiology Microbiology 12/16/18 Gram Stain - Final, Complete 12/16/18 Sputum Culture - Final, Complete Streptococcus Pneumoniae Haemophilus Influenzae RADHA REYNA MD Dec 26, 2018 15:59
[2018-12-26 16:00] VITALS: BP 122/66
[2018-12-26 20:00] VITALS: BP 128/64
[2018-12-27] VITALS: BP 115/53
[2018-12-27 04:00] VITALS: BP 137/75
[2018-12-27] MEDS: IPRATROPIUM 0.5MG/ALBUTEROL 2.5MG INH SOL UD 3ML (DUONEB)(J7620) NEB SCH ×6 (04:00→20:00)
[2018-12-27 05:32] LABS: HEMOGLOBIN 12.5 g/dl (12.0-15.5); MEAN CORPUSCULAR HEMOGLOBIN 28.7 pg (27.0-33.0); MEAN CORPUSCULAR HGB CONC 33.8 g/dl (32.0-36.5); MEAN CORPUSCULAR VOLUME 85.1 fl (80.0-96.0); PLATELET COUNT, AUTOMATED 147 10^3/uL (150-450); RED BLOOD COUNT 4.35 10^6/uL (4.00-5.40); WHITE BLOOD COUNT 10.8 10^3/uL (4.0-10.0)
[2018-12-27 05:54] LABS: BLOOD UREA NITROGEN 15 MG/DL (7-18); CALCIUM LEVEL 7.8 MG/DL (8.5-10.1); CARBON DIOXIDE LEVEL 26 MEQ/L (21-32); CHLORIDE LEVEL 104 MEQ/L (98-107); CREATININE FOR GFR 0.54 MG/DL (0.55-1.30); GLOMERULAR FILTRATION RATE > 60.0 (>51); GLUCOSE, FASTING 98 MG/DL (70-100); SODIUM LEVEL 138 MEQ/L (136-145)
[2018-12-27] MEDS: SLF 3 ML SYR IV SCH ×3 (06:00→21:01)
[2018-12-27] MEDS: HumaLOG INSULIN (NovoLOG) PER UNIT SC SCH ×4 (07:30→20:04)
[2018-12-27 08:00] VITALS: BP 138/68
[2018-12-27] MEDS ORDERED: POTASSIUM CHLORIDE 10 MEQ SR TABLET PO ONE (08:00)
[2018-12-27] MEDS: LEVEMIR (INSULIN DETEMIR) 1 UNITS/0.01ML SC SCH ×2 (09:06→20:04)
[2018-12-27] MEDS: NEUTRA-PHOS 1.5 GM PACKET PO SCH (09:07)
[2018-12-27] MEDS: PANTOPRAZOLE 40MG TAB (PROTONIX) PO SCH (09:07)
[2018-12-27] MEDS: ATORVASTATIN 20 MG TAB PO SCH (09:08)
[2018-12-27] MEDS: ASPIRIN 81 MG ENTERIC TAB PO SCH (09:09)
[2018-12-27] MEDS: LISINOPRIL 10 MG TAB PO SCH (09:09)
[2018-12-27] MEDS: predniSONE 10 MG TAB PO SCH (09:09)
[2018-12-27] MEDS: cefTRIAXone SOD 2 GM in D5W MINI-BAG PLUS 50 ML IV SCH ×2 (09:10→20:04)
[2018-12-27 12:00] VITALS: BP 128/68
--- NOTE | 2018-12-27 13:35 | DS.PDOC ---
Discharge Summary General Date of Admission Dec 15, 2018 at 22:21 Date of Discharge 12/28/18 Specialist/Consultants Involve Dr. Garrido of ID, Dr. Daniel and Dr. Yanes of Pulmonary, Dr. Uriostegui of Neurology Discharge Summary PROCEDURES PERFORMED DURING STAY: Lumbar puncture on 12/15/18 ADMITTING/DISCHARGE DIAGNOSES: Sepsis 2/2 Streptococcal Meningitis Acute CVA of Left Basal Ganglia, Temporal, and Parietal Lobes Newly diagnosed diabetes mellitus Diastolic congestive heart failure Hypertension COMPLICATIONS/CHIEF COMPLAINT: Bacterial Meningitis. HISTORY OF PRESENT ILLNESS: . 58-year-old female was brought to the ER with a chief complaint of alteration in mental status, slurring of speech, and complaints of headache and neck stiffness on 12/15/18. The patient's history was limited due to her presentation. In the ER, the patient was noted to be febrile and tachycardic. A lumbar puncture was done given her alteration in mental status in the setting of neck pain/rigidity and was suggestive of meningitis. The patient was noted to be increasingly combative and was subsequently sedated, intubated and placed on mechanical ventilation. She was admitted under the patient coordinator front desk service for further evaluation and management. During hospitalization, the patient was treated with IV antibiotic therapy and IV steroids with the assistance of infectious diseases after CSF culture was po sitive for strep pneumoniae. She was successfully extubated on 12/19/18. Subsequent imaging including an MRI of the brain revealed punctate areas of acute infarction in the left basal ganglia, temporal, and parietal lobes. The patient was started on aspirin and atorvastatin and a consultation from [facility] was also appreciated. Of note, the patient was noted to be a newly diagnosed diabetic. She has been started on insulin therapy and her blood sugars have improved. At this time, the patient states that she is feeling much better and is eager to return home. Her mentation and overall clinical status has returned back to her baseline. She has been seen and cleared by physical therapy. I have advised the patient to follow-up with her primary care physician within 7 days. All diabetic medications and supplies have been sent to her pharmacy. Lastly, the patient has been advised to return to the ER for any acute emergencies. DISCHARGE MEDICATIONS: Please see below. ALLERGIES: Please see below. PHYSICAL EXAMINATION ON DISCHARGE: VITAL SIGNS: Please see below. General Exam: Positive: Alert, Cooperative, No Acute Distress ENT Exam: Positive: Atraumatic, Mucous membr. moist/pink Neck Exam: Negative: JVD Chest Exam: Positive: Clear to auscultation, Normal air movement Heart Exam: Positive: Rate Normal, Normal S1, Normal S2 Abdomen Exam: Positive: Normal bowel sounds, Soft; Negative: Tenderness Extremity Exam: Negative: Tenderness, Swelling Neuro Exam: Positive: Normal Speech Psych Exam: Positive: Mood NL, Oriented x 3 LABORATORY DATA: Please see below. IMAGING: Clinical: Altered mental status . Comparison: None . Findings: The ventricles, sulci, and cisterns are normal in position and appearance. Smith-white differentiation is maintained. No acute intracranial hemorrhage, mass/mass effect, pathology or trauma/injury. No evidence for acute infarction. No extra-axial fluid collection. Calvarium is intact. Paranasal sinuses and mastoid air cells are clear. Impression: Normal noncontrast head CT. No evidence for acute intracranial pathology or trauma/injury. Clinical: Acute cerebrovascular accident. Technique: Smith scale and color Doppler evaluation using linear high frequency transducer Findings: Two-dimensional smith scale and color images demonstrate minimal mixed atheromatous plaquing with normal laminar flow and no appreciable narrowing. Color Doppler interrogation demonstrates normal arterial wave patterns and velocities with no significant spectral broadening. Normal flow direction is appreciated in the bilateral vertebral arteries. RIGHT (cm/s) LEFT (cm/s) ICA peak systolic velocity 83.1 115.8 ICA diastolic velocity 14.2 16.4 ECA peak systolic velocity 101.8 166.6 CCA peak systolic velocity 115.5 93.2 ICA/CCA ratio 0.72 1.24 Impression: No hemodynamically significant areas of narrowing or stenosis appreciated. Based on set standards narrowing falls within the less than 50%/normal range. MR BRAIN WITHOUT CONTRAST: HISTORY: Pneumococcal meningitis. COMPARISON: CT 12/15/2018. The examination is incomplete and limited secondary to motion. Punctate areas of increased signal intensity on diffusion and T2-weighted images are present in the left basal ganglia , left temporal and parietal lobes. These are decreased in signal intensity on ADC images and are consistent with acute infarctions. Areas of increased signal intensity on T2-weighted images are present in the periventricular and subcortical white matter. This represent small vessel ischemic disease. There is no intraparenchymal hemorrhage, mass or midline shift. The ventricular system and cortical sulci are dilated consistent with minimal volume loss. Scattered areas of increased signal intensity and diffusion-weighted image are present in the subarachnoid space and in the occipital horns of the lateral ventricles. This may represent leptomeningeal inflammation or possibly subarachnoid and intraventricular hemorrhage. There is no subdural fluid collection. The sinuses are clear. IMPRESSION: 1. There are punctate areas of acute infarction in the left basal ganglia, temporal and parietal lobes. 2. Small vessel ischemic disease. 3. There are areas of increased signal intensity in the subarachnoid space and occipital horns of the lateral ventricles on diffusion-weighted images that represent leptomeningeal inflammation or possibly subarachnoid and intraventricular hemorrhage. PROGNOSIS: Fair ACTIVITY: As tolerated. DIET: 2 g low sodium, carb consistent diet DISCHARGE PLAN: DISPOSITION: . Home DISCHARGE INSTRUCTIONS: I have advised the patient to follow-up with her primary care physician within 7 days. All diabetic medications and supplies have been sent to her pharmacy. Follow-up with neurology in one month. Lastly, the patient has been advised to return to the ER for any acute emergencies. DISCHARGE CONDITION: Stable. TIME SPENT ON DISCHARGE: Greater than 30 minutes. Vital Signs/I&Os Vital Signs Date Time Temp Pulse Resp B/P (MAP) Pulse Ox O2 Delivery O2 Flow Rate FiO2 12/27/18 12:00 98.0 94 17 128/68 (88) 95 I&O- Last 24 Hours up to 6 AM 12/27/18 06:00 Intake Total 1640 ml Output Total 0 ml Balance 1640 ml Laboratory Data Labs 24H Laboratory Tests 2 12/26/18 16:53: Bedside Glucose (Misc Panel) 230H 12/26/18 20:20: Bedside Glucose (Misc Panel) 226H 12/27/18 04:42: Nucleated Red Blood Cells % (auto) 0.0, Anion Gap 8, Glomerular Filtration Rate > 60.0, Blood Urea Nitrogen 15, Creatinine 0.54L, Sodium Level 138, Potassium Level 3.0L, Chloride Level 104, Carbon Dioxide Level 26, Calcium Level 7.8L 12/27/18 11:44: Bedside Glucose (Misc Panel) 235H CBC/BMP Laboratory Tests 12/27/18 04:42 Red Blood Count 4.35, Mean Corpuscular Volume 85.1, Mean Corpuscular Hemoglobin 28.7, Mean Corpuscular Hemoglobin Concent 33.8, Red Cell Distribution Width 15.6 H, Calcium Level 7.8 L FSBS Laboratory Tests Test 12/26/18 16:53 12/26/18 20:20 12/27/18 11:44 Range/Units Bedside Glucose (Misc Panel) 230 226 235 70-105 MG/DL Discharge Medications Scheduled Aspirin (Aspirin EC) 81 Mg Tabec, 81 MG PO DAILY Atorvastatin Calcium (Atorvastatin Calcium) 20 Mg Tab, 40 MG PO DAILY Blood Sugar Diagnostic (Advanced Glucose Test Strips) 1 Janis Janis, 1 STRIP XX ASDIRECTED Insulin Glargine,Hum.rec.anlog (Basaglar Kwikpen U-100) 100 Unit/Ml Inj, 12 UNIT SC BID Lisinopril (Lisinopril) 10 Mg Tab, 10 MG PO DAILY Nicotine (Nicotine Patch) 14 Mg/24 Hr Dis, 1 PATCH TOP DAILY for smoking cessation Scheduled PRN (Excedrin Extra Strength 250-250-65 mg) 1 Tab Tab, 2 TAB PO BID PRN for HEADACHE, (Reported) Ibuprofen (Ibuprofen) 200 Mg Tab, 400 MG PO Q6H PRN for HEADACHE OR PAIN, (Reported) Ibuprofen/Diphenhydramine HCl (Advil Pm Liqui-Gels) 1 Cap Cap, 2 CAP PO QHS PRN for SLEEP, (Reported) Allergies Coded Allergies: No Known Drug Allergies (Verified Allergy, Unknown, 12/15/18) RADHA REYNA MD Dec 27, 2018 13:35
[2018-12-27 16:00] VITALS: BP 120/62
[2018-12-27 16:43] LABS: TOTAL PROTEIN 6.1 GM/DL (6.4-8.2)
--- NOTE | 2018-12-27 21:54 | IPNPDOC ---
Subjective Date Seen The patient was seen on 12/27/18. Subjective Chief Complaint/HPI AMS and meningitis General: Reports: Other Symptoms (denies loss of appetite ) Constitutional: Reports: Other (no weakness or fatigue) Eyes: Reports: Other (no vision change) ENT: Reports: Other Symptoms (no h/a or neck stiffness) Pulmonary: Reports: Other Symptoms (no cough or SOB) Cardiovascular: Reports: Other Symptoms (no CP or palpitations ) Psych: Reports: Mood Normal Objective Physical Examination General Exam: Positive: Alert, Cooperative, No Acute Distress ENT Exam: Positive: Atraumatic, Mucous membr. moist/pink Neck Exam: Negative: JVD Chest Exam: Positive: Clear to auscultation, Normal air movement Heart Exam: Positive: Rate Normal, Normal S1, Normal S2 Abdomen Exam: Positive: Normal bowel sounds, Soft; Negative: Tenderness Extremity Exam: Negative: Tenderness, Swelling Neuro Exam: Positive: Normal Speech Psych Exam: Positive: Mood NL, Oriented x 3 Assessment /Plan Assessment IMPRESSION & PLAN: 1. Streptococcal pneumoniae, bacterial meningitis on IV Rocephin -patient appears well today, is sitting on her bed conversing with her daughters and sons, she thinks she is at her baseline mentation and so does family -continues day #12, she will need a total of 10-14 days of IV antibiotic therapy, this should be done tomorrow -Strep pneumonia is sensitive to penicillin -Immune workup including HIV, hepatitis C and antibody levels. HIV, hepatitis C were negative - IgG level was 1180 which is quite elevated and IgA 1120, spoke to oncology, will send UPEP and SPEP to evaluate for multiple myeloma along with immunotype lab -The patient will need Prevnar followed by Pneumovax. - She will need to discontinue smoking. -s/p IV vancomycin and Decadron -s/p extubation -she would like to follow with a primary care doctor the [facility] in [place], this has all ready been scheduled for her, we will correspond with this provider to make sure they follow up her Multiple myeloma lab work once dishcar ged 2. MRI demonstrating multi infarcts -likely secondary to meningitis -Neurology has been consulted, she continues on aspirin and has received numerous doses of steroids. -She has no focal deficits on exam, no residual effects 2. Hypertension -she is stable, she continues on Lisinopril 10 mg QD 3. New diagnosis of diabetes with HbA1c of 11 - Sugars have been elevated likely secondary to additional steroid therapy, improvement in BS once her steroid were discontinued Plan/VTE VTE Prophylaxis Ordered?: Yes VS, I&O, 24H, Fishbone Vital Signs/I&O Vital Signs Date Time Temp Pulse Resp B/P (MAP) Pulse Ox O2 Delivery O2 Flow Rate FiO2 12/27/18 16:00 97.8 95 17 120/62 (81) 94 I&O- Last 24 Hours up to 6 AM 12/27/18 06:00 Intake Total 1640 ml Output Total 0 ml Balance 1640 ml Laboratory Data 24H LABS Laboratory Tests 2 12/27/18 04:42: Nucleated Red Blood Cells % (auto) 0.0, Anion Gap 8, Glomerular Filtration Rate > 60.0, Blood Urea Nitrogen 15, Creatinine 0.54L, Sodium Level 138, Potassium L evel 3.0L, Chloride Level 104, Carbon Dioxide Level 26, Calcium Level 7.8L 12/27/18 11:44: Bedside Glucose (Misc Panel) 235H 12/27/18 15:55: Total Protein (PEP) 6.1L 12/27/18 16:59: Bedside Glucose (Misc Panel) 211H 12/27/18 20:03: Bedside Glucose (Misc Panel) 260H CBC/BMP Laboratory Tests 12/27/18 04:42 Red Blood Count 4.35, Mean Corpuscular Volume 85.1, Mean Corpuscular Hemoglobin 28.7, Mean Corpuscular Hemoglobin Concent 33.8, Red Cell Distribution Width 15.6 H, Calcium Level 7.8 L GME ATTESTATION GME ATTESTATION My faculty preceptor for this patient encounter was physically present during the encounter and was fully available. All aspects of the patient interview, examination, medical decision making process, and medical care plan development were reviewed and approved by the faculty preceptor. The faculty preceptor is aware and concurs with the plan as stated in the body of this note and will attest to such by his/her cosignature. LACIE DELGADO DO Dec 27, 2018 21:54
[2018-12-27 22:00] VITALS: BP 146/67
[2018-12-28] VITALS: BP 131/60
[2018-12-28 04:00] VITALS: BP 123/57
[2018-12-28] MEDS: IPRATROPIUM 0.5MG/ALBUTEROL 2.5MG INH SOL UD 3ML (DUONEB)(J7620) NEB SCH ×4 (04:00→11:27)
[2018-12-28] MEDS: SLF 3 ML SYR IV SCH (04:57)
[2018-12-28 05:39] LABS: HEMOGLOBIN 12.2 g/dl (12.0-15.5); MEAN CORPUSCULAR HEMOGLOBIN 28.5 pg (27.0-33.0); MEAN CORPUSCULAR VOLUME 86.4 fl (80.0-96.0); PLATELET COUNT, AUTOMATED 132 10^3/uL (150-450); RED BLOOD COUNT 4.28 10^6/uL (4.00-5.40); WHITE BLOOD COUNT 10.6 10^3/uL (4.0-10.0)
[2018-12-28 06:08] LABS: BLOOD UREA NITROGEN 13 MG/DL (7-18); CALCIUM LEVEL 7.8 MG/DL (8.5-10.1); CARBON DIOXIDE LEVEL 26 MEQ/L (21-32); CHLORIDE LEVEL 103 MEQ/L (98-107); CREATININE FOR GFR 0.51 MG/DL (0.55-1.30); GLOMERULAR FILTRATION RATE > 60.0 (>51); GLUCOSE, FASTING 98 MG/DL (70-100); POTASSIUM SERUM 3.5 MEQ/L (3.5-5.1); SODIUM LEVEL 135 MEQ/L (136-145)
[2018-12-28] MEDS: HumaLOG INSULIN (NovoLOG) PER UNIT SC SCH (07:30)
[2018-12-28 08:00] VITALS: BP 118/64
[2018-12-28 08:40] VITALS: BP 118/64
[2018-12-28] MEDS: NEUTRA-PHOS 1.5 GM PACKET PO SCH (08:40)
[2018-12-28] MEDS: cefTRIAXone SOD 2 GM in D5W MINI-BAG PLUS 50 ML IV SCH (08:40)
[2018-12-28] MEDS: LISINOPRIL 10 MG TAB PO SCH (08:40)
[2018-12-28] MEDS: ASPIRIN 81 MG ENTERIC TAB PO SCH (08:41)
[2018-12-28] MEDS: LEVEMIR (INSULIN DETEMIR) 1 UNITS/0.01ML SC SCH (08:41)
[2018-12-28] MEDS: PANTOPRAZOLE 40MG TAB (PROTONIX) PO SCH (08:41)
[2018-12-28] MEDS: ATORVASTATIN 20 MG TAB PO SCH (08:41)
[2018-12-28] MEDS: predniSONE 10 MG TAB PO SCH (08:41)
[2018-12-28 11:41] LABS: ALBUMIN 2.82 GM/DL (3.29-5.55); ALBUMIN % 46.2 % (55.8-66.1); ALPHA-1-GLOBULIN % 5.4 % (2.9-4.9); ALPHA-1-GLOBULINS 0.33 GM/DL (0.17-0.41); ALPHA-2-GLOBULINS 0.67 GM/DL (0.42-0.99); BETA-1-GLOBULINS 0.45 GM/DL (0.28-0.60); BETA-1-GLOBULINS % 7.3 % (4.7-7.2); BETA-2-GLOBULINS 0.57 GM/DL (0.19-0.55); BETA-2-GLOBULINS % 9.3 % (3.2-6.5); GAMMA GLOBULIN % 20.8 % (11.1-18.8)
[2018-12-28 11:42] LABS: GAMMA GLOBULINS 1.27 GM/DL (0.65-1.58)
--- NOTE | 2018-12-28 22:08 | IPN ---
DATE: 12/28/2018 Please refer to discharge summary for more information. Patient stayed one more day to finish a course of intravenous (IV) antibiotics. SUBJECTIVE: Patient is seen and examined in the room today. Patient denies any acute complaints. Yesterday patient had difficulty sleeping, because she was excited to be discharged today. Otherwise no events reported. OBJECTIVE: VITAL SIGNS: Temperature 98.2, pulse 88, respirations 18, blood pressure 118/64, pulse oximetry 93% in room air. GENERAL: Patient is alert, awake, comfortable. HEENT: Normocephalic, atraumatic. Extraocular motor grossly intact. CARDIOVASCULAR: Positive S1, S2, regular rate. LUNGS: Clear to auscultation bilaterally. ABDOMEN: Soft, nontender, nondistended. Bowel sounds present. EXTREMITIES: No edema. LABORATORY DATA: WBC 10.6, hemoglobin 12.2, hematocrit 37, platelet count is 132. Sodium is 135, potassium 3.5, chloride 103, carbon dioxide 26, BUN 13, creatinine 0.51, GFR greater than 60, fasting glucose is 98, calcium is 7.8. ASSESSMENT AND PLAN: 1. Sepsis secondary to Streptococcus meningitis. 2. Acute cerebrovascular accident (CVA) of the left basal ganglia, temporal and parietal lobes. 3. Newly diagnosed diabetes. 4. Diastolic congestive heart failure. 5. Hypertension. PLAN: Patient will receive one last dose of IV antibiotics this morning. Patient will be discharged today. Patient will be establish with a primary care provider in [place] in 1 week. Patient will followup with neurology in 1 month. Discharge medication review. Patient is safe for discharge.
== END 2018-12-28 11:43 | disposition home or self-care (01) | DRG 720 ==
LOC: EDBD 19:02 → M ED 19:02 → M ED INP 22:21 → M ICU 23:00 → M MS5PR 12-21 00:46 → M PCU 12-21 17:15
PROVIDERS: ADMIT Internal Medicine Pulmonary Disease; ATTEND Internal Medicine
PROC: 5A1945Z Respiratory Ventilation, 24-96 Consecutive Hours (ICD-10-PCS; principal; 2018-12-15)
PROC: 0BH17EZ Insertion of Endotracheal Airway into Trachea, Via Natural or Artificial Opening (ICD-10-PCS; 2018-12-15)
DX: A41.9 Sepsis, unspecified organism (principal); J96.90 Respiratory failure, unspecified, unspecified whether with hypoxia or hypercapnia; I63.59 Cerebral infarction due to unspecified occlusion or stenosis of other cerebral artery; G00.2 Streptococcal meningitis; G93.41 Metabolic encephalopathy; D69.6 Thrombocytopenia, unspecified; E11.65 Type 2 diabetes mellitus with hyperglycemia; I11.0 Hypertensive heart disease with heart failure; I50.32 Chronic diastolic (congestive) heart failure; E83.39 Other disorders of phosphorus metabolism; E87.1 Hypo-osmolality and hyponatremia; L50.9 Urticaria, unspecified; F17.200 Nicotine dependence, unspecified, uncomplicated; B95.3 Streptococcus pneumoniae as the cause of diseases classified elsewhere

== ENCOUNTER → 2023-02-17 | Outpatient (CLI) | payer OTHER ==
[~2023-02-17] MED LIST: ADVI1CAP2 PO; ALCOPAD17 TOP; ASPI-569 PO; ATOR1TAB21 PO; BASA100I SC; EXCETAB81 PO; GLUC1TES2 XX; IBUPOTC PO; LANC30MI XX; LEVO75TA4; LISI10TA22 PO; METF10004; METF10004 PO; NICO14DI31 TOP; PEN1MIS21 SC
== END ==
LOC: M RAD 15:45
PROVIDERS: ATTEND Internal Medicine Pulmonary Disease
DX: R91.8 Other nonspecific abnormal finding of lung field (principal)

== ENCOUNTER → 2023-03-02 | Outpatient (CLI) | payer OTHER ==
[~2023-03-02] MED LIST changes: -LEVO75TA4; +LEVO75TA4 PO; +VITA100093 PO
[2023-03-02 18:04] LABS: INR 1.19; PARTIAL THROMBOPLASTIN TIME 36.3 SECONDS (24.8-34.2); PROTHROMBIN TIME 15.4 SECONDS (12.5-14.5)
[2023-03-02 18:15] LABS: PLATELET COUNT, AUTOMATED 94 10^3/uL (150-450)
== END ==
LOC: M LAB 16:31
PROVIDERS: ATTEND Internal Medicine Pulmonary Disease
DX: Z01.818 Encounter for other preprocedural examination (principal)

== ENCOUNTER 2023-03-04 07:05 | Day surgery (SDC) | payer OTHER ==
[~2023-03-04] VITALS: Ht 162.6 cm; Wt 83.5 kg
[2023-03-04] MEDS ORDERED: THROMBIN 5,000 UNITS VIAL As Ordered ONE (08:16)
[2023-03-04] MEDS ORDERED: EPINEPHrine 1MG/10ML SYRINGE 1.5IN As Ordered ONE (08:16)
[2023-03-04] MEDS ORDERED: CETACAINE SPRAY 5GM As Ordered ONE (08:16)
[2023-03-04] MEDS ORDERED: LR 1,000 ML IV SCH (08:35)
[2023-03-04] MEDS ORDERED: INSULIN LISPRO (NovoLOG) PER UNIT SC PRN ×2 (08:35→10:10)
[2023-03-04] MEDS ORDERED: LIDOCAINE PRES-FREE 2% 10ML AMP As Ordered ONE (08:47)
[2023-03-04] MEDS ORDERED: ALBUTEROL SULFATE 2.5MG/0.5ML INH NEB SOLN As Ordered ONE (08:48)
[2023-03-04] MEDS ORDERED: MIDAZOLAM INJ 2MG/2ML VIAL As Ordered ONE (09:20)
[2023-03-04] MEDS ORDERED: ROCURONIUM BROMIDE 50MG/5ML VIAL As Ordered ONE (09:20)
[2023-03-04] MEDS ORDERED: SUGAMMADEX SODIUM 500 MG/5 ML VIAL (BRIDION) As Ordered ONE (09:20)
[2023-03-04] MEDS ORDERED: ACETAMINOPHEN 1000MG 100ML IV BAG As Ordered ONE (09:20)
[2023-03-04] MEDS ORDERED: LIDOCAINE 2% 100MG/5ML SDV (FOR ANES.) As Ordered ONE (09:20)
[2023-03-04] MEDS ORDERED: propofoL 200 MG/20 ML VIAL As Ordered ONE (09:20)
[2023-03-04] MEDS ORDERED: fentaNYL 100 MCG/2 ML INJECTION As Ordered ONE (09:20)
[2023-03-04] MEDS ORDERED: METOCLOPRAMIDE INJ 10MG/2ML VIAL As Ordered ONE (09:20)
[2023-03-04] MEDS ORDERED: ONDANSETRON 4MG 2ML VIAL As Ordered ONE (09:20)
[2023-03-04] MEDS ORDERED: PHENYLephrine 500MCG 5ML (100MCG/ML) SYRINGE As Ordered ONE (09:22)
[2023-03-04] MEDS ORDERED: ePHEDrine SULFATE 25 MG/5 ML(5MG/ML) SYRINGE As Ordered ONE (09:32)
[2023-03-04] MEDS ORDERED: HYDROMORPHONE HCL 0.5 MG/ 0.5 ML SYRINGE IV PRN (10:10)
[2023-03-04] MEDS ORDERED: ONDANSETRON 4MG 2ML VIAL IV PRN (10:10)
[2023-03-04] MEDS ORDERED: fentaNYL 100 MCG/2 ML INJECTION IV PRN (10:10)
[2023-03-04] MEDS ORDERED: oxyCODONE 5MG TAB PO PRN (10:10)
[2023-03-04] MEDS ORDERED: ALBUTEROL SULFATE 2.5MG/0.5ML INH NEB SOLN INH ONE (10:15)
[2023-03-04] MEDS ORDERED: LIDOCAINE PRES-FREE 2% 10ML AMP INH ONE (10:15)
[2023-03-04 11:15] VITALS: BP 116/58; TEMP 97.5; O2SAT 94
[2023-03-05] MEDS ORDERED: LIDOCAINE PRES-FREE 2% 10ML AMP INH ONE (06:00)
[2023-03-05] MEDS ORDERED: ALBUTEROL SULFATE 2.5MG/0.5ML INH NEB SOLN INH ONE (06:00)
== END 2023-03-04 11:29 | disposition home or self-care (01) ==
LOC: M SDC 07:05
PROVIDERS: ATTEND Internal Medicine Pulmonary Disease
DX: R91.8 Other nonspecific abnormal finding of lung field (principal); I10 Essential (primary) hypertension; E78.5 Hyperlipidemia, unspecified; E11.9 Type 2 diabetes mellitus without complications; E03.9 Hypothyroidism, unspecified; K74.60 Unspecified cirrhosis of liver; D69.6 Thrombocytopenia, unspecified; Z86.73 Personal history of transient ischemic attack (TIA), and cerebral infarction without residual deficits; F17.219 Nicotine dependence, cigarettes, with unspecified nicotine-induced disorders; Z79.899 Other long term (current) drug therapy; Z79.4 Long term (current) use of insulin; Z79.82 Long term (current) use of aspirin; Z79.84 Long term (current) use of oral hypoglycemic drugs; Z79.890 Hormone replacement therapy
CPT/HCPCS: 31626; 31627; 31628; 31629; 31654; 71045; 76000; 88173; 88305; A4648; J0131; J0171; J1100; J2250; J2370; J2405; J2765; J3010; S2900

== ENCOUNTER → 2023-03-09 | Outpatient (CLI) | payer OTHER | LOC: M PLARAD 08:22 | PROVIDERS: ATTEND Internal Medicine Hematology & Oncology | DX: R91.8 Other nonspecific abnormal finding of lung field (principal) | CPT/HCPCS: 78815; A9552 ==

== ENCOUNTER → 2023-04-29 | Outpatient (CLI) | payer OTHER ==
[2023-04-29 16:10] LABS: INR 1.23; PARTIAL THROMBOPLASTIN TIME 34.4 SECONDS (24.8-34.2); PROTHROMBIN TIME 15.1 SECONDS (12.5-14.5)
[2023-04-29 16:14] LABS: PLATELET COUNT, AUTOMATED 86 10^3/uL (150-450)
== END ==
LOC: M RAD 15:13
PROVIDERS: ATTEND Internal Medicine Pulmonary Disease
DX: R91.8 Other nonspecific abnormal finding of lung field (principal)

== ENCOUNTER 2023-05-06 06:07 | Day surgery (SDC) | payer OTHER ==
[~2023-05-06] VITALS: Ht 162.6 cm; Wt 83.3 kg
[~2023-05-06 06:07] MED LIST changes: +ALBUTEROL SULFATE 2.5MG/0.5ML INH NEB SOLN INH ONE; +LANTINJ4 SC; +LIDOCAINE PRES-FREE 2% 10ML AMP INH ONE
[2023-05-06] MEDS ORDERED: INSULIN LISPRO (NovoLOG) PER UNIT SC PRN ×2 (06:30→08:55)
[2023-05-06] MEDS ORDERED: LR 1,000 ML IV SCH ×2 (06:30→08:55)
[2023-05-06] MEDS ORDERED: ONDANSETRON 4MG 2ML VIAL As Ordered ONE (06:54)
[2023-05-06] MEDS ORDERED: ROCURONIUM BROMIDE 50MG/5ML VIAL As Ordered ONE (06:54)
[2023-05-06] MEDS ORDERED: LIDOCAINE 2% 100MG/5ML SDV (FOR ANES.) As Ordered ONE ×2 (06:54→07:58)
[2023-05-06] MEDS ORDERED: propofoL 200 MG/20 ML VIAL As Ordered ONE (06:54)
[2023-05-06] MEDS ORDERED: SUGAMMADEX SODIUM 500 MG/5 ML VIAL (BRIDION) As Ordered ONE (06:54)
[2023-05-06] MEDS ORDERED: MIDAZOLAM INJ 2MG/2ML VIAL As Ordered ONE (06:58)
[2023-05-06] MEDS ORDERED: fentaNYL 100 MCG/2 ML INJECTION As Ordered ONE (06:58)
[2023-05-06] MEDS ORDERED: THROMBIN 5,000 UNITS VIAL As Ordered ONE (07:26)
[2023-05-06] MEDS ORDERED: EPINEPHrine 1MG/10ML SYRINGE 1.5IN As Ordered ONE (07:26)
[2023-05-06] MEDS ORDERED: CETACAINE SPRAY 5GM As Ordered ONE (07:26)
[2023-05-06] MEDS ORDERED: ACETAMINOPHEN 1000MG 100ML IV BAG As Ordered ONE (07:50)
[2023-05-06] MEDS ORDERED: fentaNYL 100 MCG/2 ML INJECTION IV PRN (08:55)
[2023-05-06] MEDS ORDERED: oxyCODONE 5MG TAB PO PRN (08:55)
[2023-05-06] MEDS ORDERED: ONDANSETRON 4MG 2ML VIAL IV PRN (08:55)
[2023-05-06 09:35] VITALS: BP 109/58; TEMP 97.5; O2SAT 93
== END 2023-05-06 09:42 | disposition home or self-care (01) ==
LOC: M SDC 06:07
PROVIDERS: ATTEND Internal Medicine Pulmonary Disease
DX: C34.32 Malignant neoplasm of lower lobe, left bronchus or lung (principal); D72.820 Lymphocytosis (symptomatic); F17.218 Nicotine dependence, cigarettes, with other nicotine-induced disorders; Z79.02 Long term (current) use of antithrombotics/antiplatelets; Z79.3 Long term (current) use of hormonal contraceptives; Z79.82 Long term (current) use of aspirin; Z79.890 Hormone replacement therapy; Z79.899 Other long term (current) drug therapy
CPT/HCPCS: 31624; 31627; 31628; 31629; 31654; 71045; 76000; 88108; 88173; 88305; 88313; J0131; J0171; J1100; J2250; J2405; J3010

== ENCOUNTER → 2023-06-09 | Outpatient (CLI) | payer OTHER ==
[~2023-06-09] MED LIST changes: -ALBUTEROL SULFATE 2.5MG/0.5ML INH NEB SOLN INH ONE; -LIDOCAINE PRES-FREE 2% 10ML AMP INH ONE
== END ==
LOC: M ONCR 15:02
PROVIDERS: ATTEND Radiology Radiation Oncology
DX: C34.32 Malignant neoplasm of lower lobe, left bronchus or lung (principal); C44.311 Basal cell carcinoma of skin of nose; F17.210 Nicotine dependence, cigarettes, uncomplicated; Z71.2 Person consulting for explanation of examination or test findings; Z79.4 Long term (current) use of insulin; Z79.82 Long term (current) use of aspirin; Z79.84 Long term (current) use of oral hypoglycemic drugs; Z79.890 Hormone replacement therapy; Z79.899 Other long term (current) drug therapy

== ENCOUNTER 2023-07-14 15:28 | Outpatient (RCR) | payer OTHER ==
[~2023-07-14 15:28] MED LIST changes: +PEN-308 SC; -PEN1MIS21 SC
== END 2023-07-21 ==
LOC: M ONCR 15:28
PROVIDERS: ATTEND General Practice
DX: Z51.0 Encounter for antineoplastic radiation therapy (principal); C34.32 Malignant neoplasm of lower lobe, left bronchus or lung

== ENCOUNTER 2023-07-14 15:30 | Outpatient (RCR) | payer OTHER | END 2023-07-21 | LOC: M ONCR 15:30 | PROVIDERS: ATTEND General Practice | DX: Z51.0 Encounter for antineoplastic radiation therapy (principal); C44.311 Basal cell carcinoma of skin of nose ==

== ENCOUNTER → 2023-08-20 | Outpatient (RCR) | payer OTHER | LOC: M ONCR 07-29 15:01 | PROVIDERS: ATTEND General Practice | DX: Z51.0 Encounter for antineoplastic radiation therapy (principal); C44.311 Basal cell carcinoma of skin of nose ==

== ENCOUNTER 2023-09-18 14:58 | Outpatient (RCR) | payer OTHER | END 2023-09-20 | LOC: M ONCR 14:58 | PROVIDERS: ATTEND General Practice | DX: Z51.0 Encounter for antineoplastic radiation therapy (principal); C44.311 Basal cell carcinoma of skin of nose ==

== ENCOUNTER → 2023-10-13 | Outpatient (CLI) | payer OTHER ==
[~2023-10-13] MED LIST changes: +ISOVUE-370 76% 100ML VIAL As Ordered ONE
== END ==
LOC: M RAD 14:26
PROVIDERS: ATTEND General Practice
DX: C34.90 Malignant neoplasm of unspecified part of unspecified bronchus or lung (principal)
CPT/HCPCS: 71260; Q9967

== ENCOUNTER → 2023-10-20 | Outpatient (CLI) | payer OTHER ==
[~2023-10-20] MED LIST changes: -ISOVUE-370 76% 100ML VIAL As Ordered ONE
== END ==
LOC: M ONCR 14:38
PROVIDERS: ATTEND General Practice
DX: C44.311 Basal cell carcinoma of skin of nose (principal); C34.32 Malignant neoplasm of lower lobe, left bronchus or lung; F17.210 Nicotine dependence, cigarettes, uncomplicated; Z71.2 Person consulting for explanation of examination or test findings; Z79.4 Long term (current) use of insulin; Z79.82 Long term (current) use of aspirin; Z79.84 Long term (current) use of oral hypoglycemic drugs; Z79.890 Hormone replacement therapy; Z79.899 Other long term (current) drug therapy; Z92.3 Personal history of irradiation